=== PATIENT | female | born 1990 | race Caucasian/White ===

== ENCOUNTER 2016-07-20 18:46 | Emergency (ER) | payer OTHER ==
[2016-07-20 18:52] VITALS: BP 132/66; PULSE 100; TEMP 98; BMI 32.1
[2016-07-20 20:10] LABS: URINE APPEARANCE CLEAR; URINE BILIRUBIN NEGATIVE (NEGATIVE); URINE BLOOD NEGATIVE (NEGATIVE); URINE COLOR YELLOW; URINE GLUCOSE (UA) NEGATIVE (NEGATIVE); URINE KETONE NEGATIVE (NEGATIVE); URINE LEUK ESTERASE 2+ (NEGATIVE); URINE NITRITE NEGATIVE (NEGATIVE); URINE PROTEIN NEGATIVE (NEGATIVE); URINE UROBILINOGEN NEGATIVE E.U./dl (0.2-1.0)
[2016-07-20 20:14] LABS: URINE BACTERIA RARE /hpf (NONE SEEN); URINE MUCUS RARE; URINE RBC 6 /hpf (0-3); URINE WBC 9 /hpf (3-5); YEAST RARE
--- NOTE | 2016-07-20 20:18 | PDOC ---
History of Present Illness - General History Source: Patient Exam Limitations: No Limitations - History of Present Illness Initial Comments: CHIEF COMPLAINT: 26 y/o afebrile , approximately 19 week female with LMP 03/08/16 c/o diarrhea x 1 week and lower abd pain. HISTORY OF PRESENT ILLNESS: The patient denies f/c, n/v, CP, SOB, back pain, hematuria, dysuria, vaginal bleeding/discharge. She is taking vitamins. Vital signs on arrival are notable for pulse of 100. REVIEW OF SYSTEMS: GENERAL/CONSTITUTIONAL: No fever/chills. No weakness. No weight change. HEAD, EYES, EARS, NOSE AND THROAT: No change in vision. No ear pain or discharge. No sore throat. CARDIOVASCULAR: No chest pain or shortness of breath. RESPIRATORY: No cough, wheezing, or hemoptysis. GASTROINTESTINAL: +lower abd pain and diarrhea. No nausea, vomiting. No vaginal bleeding. GENITOURINARY: No dysuria, frequency, or change in urination. MUSCULOSKELETAL: No joint or muscle swelling or pain. No neck or back pain. SKIN: No rash or easy bruising. PHYSICAL EXAM: GENERAL: The patient is awake, alert, and fully oriented, in no acute distress. She is well appearing and ambulatory. HEAD: Normal with no signs of trauma. ENT: Pupils equal, round and reactive to light, extraocular movements intact, sclera anicteric, conjunctiva clear. Neck supple. LUNGS: Clear to auscultation bilaterally. Normal excursion. No respiratory distress or use of accessory muscles. CV: RRR, S1/S2, no MRG. Cap refill < 2 sec. ABDOMEN: Soft, non-distended, TTP of suprapubic region, no hepatomegaly or splenomegaly, no masses. EXTREMITIES: Normal range of motion, no edema. NEUROLOGICAL: Normal speech, normal gait. CN II-XII grossly intact. PSYCH: Normal mood, normal affect. SKIN: Warm, dry, normal turgor, no rashes or lesions noted. <Trina Hasa - Last Filed: 07/20/16 22:00> <Marshall Mendiola - Last Filed: 07/21/16 06:52> - General Chief Complaint: Diarrhea Stated Complaint: 19WKS/ABD PAIN Time Seen by Provider: 07/20/16 20:05 Past History - Surgical History Abdominal Surgery: Yes Cholecystectomy: Yes - Reproductive History Is Patient Now?: Yes (19 weeks) (#): 1 Para: 0 Cervical CA: No Dysfunctional Uterine Bleeding: No Ectopic : No Endometrial CA: No Polycystic Ovaries: No Therapeutic (s) & number: No Tubal Ligation: No Spontaneous : 0 - Psycho/Social/Smoking Cessation Hx Anxiety: No Suicidal Ideation: No Smoking Status: Yes Smoking History: Never smoked Have you smoked in the past 12 months: No Number of Cigarettes Smoked Daily: 0 Information on smoking cessation initiated: No Hx Alcohol Use: No Drug/Substance Use Hx: No Substance Use Type: None <Trina Haas - Last Filed: 07/20/16 22:00> <Marshall Mendiola - Last Filed: 07/21/16 06:52> - Past Medical History Allergies/Adverse Reactions: Allergies Allergy/AdvReac Type Severity Reaction Status Date / Time ibuprofen [From Advil] Allergy Mild Swelling Verified 07/20/16 18:50 Home Medications: Ambulatory Orders Cephalexin Monohydrate [Keflex -] 500 mg PO BID #10 capsule 07/20/16 *Physical Exam - Vital Signs Last Vital Signs Temp Pulse Resp BP Pulse Ox 98 F 100 H 18 132/66 99 07/20/16 18:50 07/20/16 18:50 07/20/16 18:50 07/20/16 18:50 07/20/16 18:50 <Trina Haas - Last Filed: 07/20/16 22:00> - Vital Signs Last Vital Signs Temp Pulse Resp BP Pulse Ox 98 F 100 H 18 132/66 99 07/20/16 18:50 07/20/16 18:50 07/20/16 18:50 07/20/16 18:50 07/20/16 18:50 <Marshall Mendiola - Last Filed: 07/21/16 06:52> ED Treatment Course - LABORATORY CBC & Chemistry Diagram: 07/20/16 20:30 07/20/16 20:30 <Trina Haas - Last Filed: 07/20/16 22:00> - LABORATORY CBC & Chemistry Diagram: 07/20/16 20:30 07/20/16 20:30 - ADDITIONAL ORDERS Additional order review: Laboratory Results 07/20/16 07/20/16 07/20/16 20:30 20:30 20:30 Sodium 139 Potassium 4.0 Chloride 104 Carbon Dioxide 23 Anion Gap 12 BUN 10 Creatinine 0.6 Creat Clearance w eGFR > 60 Random Glucose 76 Calcium 8.7 Magnesium 2.0 Total Bilirubin 0.4 AST 14 L D ALT 26 Alkaline Phosphatase 55 Total Protein 6.4 Albumin 3.2 L Urine Color Urine Appearance Urine pH Ur Specific [place] Urine Protein Urine Glucose (UA) Urine Ketones Urine Blood Urine Nitrite Urine Bilirubin Urine Urobilinogen Ur Leukocyte Esterase Urine RBC Urine WBC Ur Epithelial Cells Urine Bacteria Urine Mucus Urine Yeast Urine HCG, Qual Blood Type O POSITIVE Antibody Screen Negative 07/20/16 20:00 Sodium Potassium Chloride Carbon Dioxide Anion Gap BUN Creatinine Creat Clearance w eGFR Random Glucose Calcium Magnesium Total Bilirubin AST ALT Alkaline Phosphatase Total Protein Albumin Urine Color Yellow Urine Appearance Clear Urine pH 5.0 Ur Specific [place] 1.031 Urine Protein Negative Urine Glucose (UA) Negative Urine Ketones Negative Urine Blood Negative Urine Nitrite Negative Urine Bilirubin Negative Urine Urobilinogen Negative Ur Leukocyte Esterase 2+ H Urine RBC 6 Urine WBC 9 Ur Epithelial Cells Moderate Urine Bacteria Rare Urine Mucus Rare Urine Yeast Rare Urine HCG, Qual Positive Blood Type Antibody Screen 07/20/16 20:30 RBC 3.31 L MCV 96.5 H MCHC 34.1 RDW 13.4 MPV 8.7 Neutrophils % 69.6 D Lymphocytes % 22.7 D Monocytes % 6.2 Eosinophils % 1.1 Basophils % 0.4 - Medications Given in the ED: ED Medications Discontinued Medications Generic Name Dose Route Start Last Admin Trade Name Freq PRN Reason Stop Dose Admin Cephalexin HCl 500 mg 07/20/16 22:10 07/20/16 22:21 Keflex - PO 07/20/16 22:11 500 mg ONCE ONE Administration Sodium Chloride 1,000 mls @ 1,000 mls/hr 07/20/16 20:19 07/20/16 20:35 Normal Saline - IV 07/20/16 21:18 1,000 mls/hr ASDIR STA Administration <Marshall Mendiola - Last Filed: 07/21/16 06:52> Medical Decision Making - Medical Decision Making A/P: 26 y/o afebrile female, , approximately 19 weeks c/o lower abd pain and diarrhea x 1 week. Plan is as follows: 1. Labs 2. UA/culture 3. Ultrasound 4. IV fluids Ultrasound IMPRESSION: Single live intrauterine gestation of 19 weeks 2 days. UA shows +UTI. Will treat with Keflex. Gave patient her results. Suggested she eat bananas, plain rice and applesauce for her diarrhea and take entire course of antibiotics. Pt instructed to f/u with her MOBILE SALES TECHNICIAN and return to the ER with any worsening or concerning symptoms. The patient verbalizes understanding of all instructions, has no further questions and is awaiting discharge. <Trina Haas - Last Filed: 07/20/16 22:00> - Medical Decision Making 07/21/16 06:52 ED ATTENDING NOTE: I was available for consultation and review of the case and plan as needed. <Marshall Mendiola - Last Filed: 07/21/16 06:52> *DC/Admit/Observation/Transfer <Trina Haas - Last Filed: 07/20/16 22:00> <Marshall Mendiola - Last Filed: 07/21/16 06:52> Diagnosis at time of Disposition: UTI (urinary tract infection) Qualifiers: Urinary tract infection type: acute cystitis Hematuria presence: without hematuria Qualified Code(s): N30.00 - Acute cystitis without hematuria Diarrhea Qualifiers: Diarrhea type: unspecified type Qualified Code(s): R19.7 - Diarrhea, unspecified - Discharge Dispostion Disposition: HOME Condition at time of disposition: Good - Prescriptions Prescriptions: Cephalexin Monohydrate [Keflex -] 500 mg PO BID #10 capsule - Referrals Referrals: Yadira Nava [Primary Care Provider] - - Patient Instructions Printed Discharge Instructions: DI for Urinary Tract Infection (UTI), DI for Diarrhea and Traveler's Diarrhea -- Adult Additional Instructions: Discharge Instructions: -Take antibiotics as prescribed -Eat bananas, plain rice and applesauce to help with diarrhea -Follow up with your MOBILE SALES TECHNICIAN as soon as possible -Return to the ER with any worsening or concerning symptoms
[2016-07-20] MEDS ORDERED: SODIUM CHLORIDE 1,000 ML IV STA (20:19)
[2016-07-20 20:42] LABS: BASOPHIL 0.4 % (0-2.0); EOSINOPHIL 1.1 % (0-4.5); MCH 32.9 pg (25.7-33.7); MCHC 34.1 g/dl (32.0-36.0); MEAN CELL VOLUME 96.5 fl (80-96); MEAN PLT VOLUME 8.7 fl (7.5-11.1); NEUTROPHILS 69.6 % (42.8-82.8); PLATELET COUNT 249 K/MM3 (134-434); RDW 13.4 % (11.6-15.6); WHITE BLOOD COUNT 12.6 K/mm3 (4.0-10.0)
[2016-07-20 21:19] LABS: ALBUMIN 3.2 g/dl (3.4-5.0); ANION GAP 12 (8-16); BILIRUBIN,TOTAL 0.4 mg/dL (0.2-1.0); CALCIUM 8.7 mg/dL (8.5-10.1); CO2 23 mmol/L (21-32); CREATININE 0.6 mg/dL (0.55-1.02); GLUCOSE,RANDOM 76 mg/dL (74-106); SGOT/AST 14 U/L (15-37); SGPT/ALT 26 U/L (12-78)
[2016-07-20 21:21] LABS: ALK PHOS 55 U/L (45-117); TOT PROT 6.4 g/dl (6.4-8.2)
[2016-07-20] MEDS ORDERED: CEPHALEXIN MONOHYDRATE 500 MG CAPSULE (UD) PO ONE (22:10)
[2016-07-20] MEDS ORDERED: CEPHALEXIN MONOHYDRATE 250 MG CAPSULE (FP) ONE (22:16)
== END 2016-07-20 22:22 | disposition home or self-care (01) ==
LOC: JER 18:46
PROC: 3E0337Z Introduction of Electrolytic and Water Balance Substance into Peripheral Vein, Percutaneous Approach (ICD-10-PCS; principal; 2016-07-20)
DX: O23.42 Unspecified infection of urinary tract in pregnancy, second trimester (principal); Z3A.19 19 weeks gestation of pregnancy
CPT/HCPCS: 36415; 76815-TC; 80053; 81003; 81015; 83735; 84703; 85025; 86850; 86900; 86901; 96360; 99282-25

== ENCOUNTER 2016-09-11 17:33 | Emergency (ER) | payer OTHER ==
[2016-09-11 18:07] VITALS: BMI 40.4
[2016-09-11] MEDS ORDERED: SODIUM CHLORIDE 1,000 ML IV STA (19:45)
[2016-09-11 20:26] LABS: BASOPHIL 0.5 % (0-2.0); MEAN CELL VOLUME 97.1 fl (80-96); MEAN PLT VOLUME 9.1 fl (7.5-11.1); NEUTROPHILS 72.3 % (42.8-82.8); PLATELET COUNT 235 K/MM3 (134-434); WHITE BLOOD COUNT 11.5 K/mm3 (4.0-10.0)
[2016-09-11 20:32] LABS: URINE APPEARANCE CLOUDY; URINE BILIRUBIN NEGATIVE (NEGATIVE); URINE BLOOD NEGATIVE (NEGATIVE); URINE COLOR YELLOW; URINE GLUCOSE (UA) NEGATIVE (NEGATIVE); URINE KETONE NEGATIVE (NEGATIVE); URINE NITRITE NEGATIVE (NEGATIVE); URINE PROTEIN NEGATIVE (NEGATIVE); URINE UROBILINOGEN NEGATIVE E.U./dl (0.2-1.0)
[2016-09-11 20:42] LABS: ALBUMIN 3.1 g/dl (3.4-5.0); ANION GAP 12 (8-16); BILIRUBIN,TOTAL 0.4 mg/dL (0.2-1.0); CALCIUM 8.4 mg/dL (8.5-10.1); CO2 21 mmol/L (21-32); COCKROFT - GAULT 446.4625; CREATININE 0.4 mg/dL (0.55-1.02); GLUCOSE,RANDOM 76 mg/dL (74-106); MAGNESIUM 1.9 mg/dL (1.8-2.4); SGOT/AST 19 U/L (15-37); SGPT/ALT 25 U/L (12-78); TOT PROT 6.5 g/dl (6.4-8.2)
[2016-09-11 20:43] LABS: URINE LEUK ESTERASE 2+ (NEGATIVE)
[2016-09-11 20:58] LABS: ALK PHOS 91 U/L (45-117)
[2016-09-11 21:00] LABS: URINE BACTERIA RARE /hpf (NONE SEEN); URINE MUCUS FEW; URINE RBC 8 /hpf (0-3); URINE WBC 14 /hpf (3-5)
[2016-09-11] MEDS ORDERED: NITROFURANTOIN MACROCRYSTAL 50 MG CAPSULE (FP) ONE (22:23)
--- NOTE | 2016-09-11 22:29 | PDOC ---
History of Present Illness - General Chief Complaint: Pain, Acute Stated Complaint: UPPER ABDOMINAL PAIN/26 WKS Time Seen by Provider: 09/11/16 19:06 History Source: Patient Exam Limitations: No Limitations - History of Present Illness Travel History: No Initial Comments: 09/11/16 22:24 26yo Female patient w/ PmHx: Cholecystectomy "years ago" 26 weeks presents to ED for upper abd pain. Patient state symptoms began 2 hours after eating last night and worsened around 4 am this morning. Patient states symptoms woke her up out of her sleep. She reports she has been unable to tolerate fluids or food. She denies CP, back pain, vomiting or diarrhea, fever, diff breathing, or any other complaints at this time. NETWORK SECURITY ENGINEER: Dr. Nolan PCP: Andres Nava. Timing/Duration: reports: constant Quality: reports: moderate Abdominal Pain Onset Location: reports: epigastric Activities at Onset: reports: no specific activity Treatment Prior to Arrive: worse with: analgesics, antacids, cold pack, heat, laxative, enema, other Aggravating Factors: worse with: None, Defecation, Eating, Emotional upset, Exertion, [place], Movement, Voiding, Change in position Alleviating Factors: worse with: None, Belching, Shallow Breathing, Defecation, Eating, Holding Breath, Passing Gas, Change in Position, Rest, Voiding, Vomiting Past History - Travel Traveled outside of the country in the last 30 days: No Close contact w/someone who was outside of country & ill: No - Past Medical History Allergies/Adverse Reactions: Allergies Allergy/AdvReac Type Severity Reaction Status Date / Time ibuprofen [From Advil] Allergy Mild Swelling Verified 09/11/16 18:06 Home Medications: Ambulatory Orders Ferrous Sulfate [Feosol] 325 mg PO DAILY 09/12/16 Nitrofurantoin Monohyd/M-Cryst [Macrobid -] 100 mg PO BID #14 capsule 09/12/16 Vitamins (Sjr) - 1 tab PO DAILY 09/12/16 - Surgical History Abdominal Surgery: Yes Cholecystectomy: Yes - Reproductive History (#): 1 Para: 0 Cervical CA: No Dysfunctional Uterine Bleeding: No Ectopic : No Endometrial CA: No Polycystic Ovaries: No Therapeutic (s) & number: No Tubal Ligation: No Spontaneous : 0 - Psycho/Social/Smoking Cessation Hx Anxiety: No Suicidal Ideation: No Smoking Status: Yes Smoking History: Never smoked Have you smoked in the past 12 months: No Number of Cigarettes Smoked Daily: 0 Information on smoking cessation initiated: No Hx Alcohol Use: No Drug/Substance Use Hx: No Substance Use Type: None Review of Systems - Review of Systems Able to Perform ROS?: Yes Is the patient limited [place] proficient: No Constitutional: No: Chills, Fever Respiratory: No: Cough, Shortness of Breath, Stridor, Wheezing Cardiac (ROS): No: Chest Pain, Palpitations, Syncope, Chest Tightness ABD/GI: Yes: Nausea, Poor Appetite, Poor Fluid Intake, Other (Upper abdominal Pain-- 26 weeks preg.). No: Constipated, Diarrhea, Vomiting, Abdominal cramping : No: Burning, Dysuria, Hematuria Musculoskeletal: No: Back Pain Integumentary: No: Bruising, Erythema Neurological: No: Headache All Other Systems: Reviewed and Negative *Physical Exam - Vital Signs Last Vital Signs Temp Pulse Resp BP Pulse Ox 97.3 F L 99 H 20 131/74 100 09/11/16 18:02 09/11/16 18:02 09/11/16 18:02 09/11/16 18:02 09/11/16 18:02 - Physical Exam General Appearance: Yes: Nourished, Appropriately Dressed. No: Apparent Distress, Mild Distress, Moderate Distress, Severe Distress Neck: positive: Trachea midline, Supple. negative: Decreased range of motion, Stridor, Lymphadenopathy (R), Lymphadenopathy (L) Respiratory/Chest: positive: Lungs Clear, Normal Breath Sounds. negative: Chest Tender, Respiratory Distress, Accessory Muscle Use, Labored Respiration, Rapid RR, Wheezing Cardiovascular: positive: Regular Rhythm, Regular Rate Gastrointestinal/Abdominal: positive: Normal Bowel Sounds, Tender, Soft, Distended (26 weeks ), Tenderness (Epigastric on deep palpation.). negative: Guarding, Rebound Musculoskeletal: positive: Normal Inspection. negative: CVA Tenderness Extremity: positive: Normal Capillary Refill, Normal Inspection, Normal Range of Motion Integumentary: positive: Normal Color, Dry, Warm Neurologic: positive: manipulative therapy specialist II-XII NML intact, Fully Oriented, Alert, Normal Mood/ Affect, Normal Response, Motor Strength 5/5 ED Treatment Course - LABORATORY CBC & Chemistry Diagram: 09/11/16 19:50 09/11/16 19:50 - ADDITIONAL ORDERS Additional order review: Laboratory Results 09/11/16 09/11/16 19:50 19:50 Sodium 139 Potassium 4.0 Chloride 106 Carbon Dioxide 21 Anion Gap 12 BUN 8 Creatinine 0.4 L D Creat Clearance w eGFR > 60 Random Glucose 76 Calcium 8.4 L Magnesium 1.9 Total Bilirubin 0.4 AST 19 D ALT 25 Alkaline Phosphatase 91 D Total Protein 6.5 Albumin 3.1 L Beta HCG, Quant 1188.3 Urine Color Yellow Urine Appearance Cloudy Urine pH 5.0 Ur Specific [place] 1.025 Urine Protein Negative Urine Glucose (UA) Negative Urine Ketones Negative Urine Blood Negative Urine Nitrite Negative Urine Bilirubin Negative Urine Urobilinogen Negative Ur Leukocyte Esterase 2+ H Urine RBC 8 Urine WBC 14 Ur Epithelial Cells Many Urine Bacteria Rare Urine Mucus Few 09/11/16 19:50 RBC 3.38 L MCV 97.1 H MCHC 33.0 RDW 13.0 MPV 9.1 Neutrophils % 72.3 Lymphocytes % 20.9 Monocytes % 5.3 Eosinophils % 1.0 Basophils % 0.5 - RADIOLOGY Radiology Studies Ordered: Category Date Time Status LIMITED US [US] Stat Ultrasound 09/11/16 19:47 Completed TRANSVAGINAL US PREG [US] Stat Ultrasound 09/11/16 19:45 Completed - Medications Given in the ED: ED Medications Discontinued Medications Generic Name Dose Route Start Last Admin Trade Name Celestineq PRN Reason Stop Dose Admin Sodium Chloride 1,000 mls @ 1,000 mls/hr 09/11/16 19:45 09/11/16 21:06 Normal Saline - IV 09/11/16 20:44 1,000 mls/hr ASDIR STA Administration Progress Note - Progress Note Progress Note: 2230: Patient sitting on stretcher eating pizza with significant other. Denies Abd pain, CP, Back pain, and no acute distress noted. *DC/Admit/Observation/Transfer Diagnosis at time of Disposition: Abdominal pain in - Discharge Dispostion Disposition: HOME Condition at time of disposition: Stable Admit: No - Prescriptions Prescriptions: Nitrofurantoin Monohyd/M-Cryst [Macrobid -] 100 mg PO BID #14 capsule - Referrals Referrals: Ayden Estrada MD [Staff Physician] - (patient will moss picker prescription to treat UTI patient will increase amount of water she drinks to 10-12 8oz glasses of water daily patient will return to labor & delivery if water breaks, vaginal bleeding, regular painful contractions or decreased movement patient will maintain appt as scheduled in 2wks patient verbalizes clear understanding of all discharge instructions patient discharged to home stable intact & undelivered) Andres Nava MD [Primary Care Provider] - - Patient Instructions Printed Discharge Instructions: DI for Abdominal Pain -- Early Additional Instructions: FOLLOW UP WITH YOUR NETWORK SECURITY ENGINEER FOR FURTHER EVALUATION. TAKE MEDICATIONS PRESCRIBED. RETURN IF ANY CONCERNS FOR FURTHER EVALUATION. Print Language: BELGIAN
[2016-09-11] MEDS ORDERED: NITROFURANTOIN MACROCRYSTAL 50 MG CAPSULE (FP) PO SCH (22:30)
[2016-09-11 23:48] VITALS: BP 114/56; PULSE 109; TEMP 98.1
== END 2016-09-12 | disposition home or self-care (01) ==
LOC: JERFT 17:33 → JER 17:33
PROC: 3E0337Z Introduction of Electrolytic and Water Balance Substance into Peripheral Vein, Percutaneous Approach (ICD-10-PCS; principal; 2016-09-11)
DX: R10.30 Lower abdominal pain, unspecified (principal); O23.32 Infections of other parts of urinary tract in pregnancy, second trimester; Z3A.26 26 weeks gestation of pregnancy
CPT/HCPCS: 36415; 76815-TC; 76817-TC; 80053; 81003; 81015; 83735; 84702; 85025; 87086; 96360; 99283-25

== ENCOUNTER 2016-09-17 20:25 | Emergency (ER) | payer OTHER ==
[2016-09-17 20:44] VITALS: TEMP 98.3; BMI 40.4
--- NOTE | 2016-09-17 20:55 | PDOC ---
History of Present Illness - History of Present Illness Initial Comments: 09/17/16 21:08 Patient is a 26 year old female (24 weeks) with no significant medical hx who is presenting to the ED with several days of sore throat, dry cough, pleuritic chest pain, and rhinorrhea. She states that her chest pain is non- radiating, localized to the center of her chest, and only present when she coughs. Her cough is dry and non-productive. The patient also endorses constant nausea and one episode of vomiting. Patient denies any fevers, chills, or diarrhea. Patient is on her third day of a weeks course of macrobid for UTI. Her last care appointment was one week ago and reported normal. OB: Apolonia Nolan CNM <Marianne Land - Last Filed: 09/17/16 21:08> <Rudy Mccarthy - Last Filed: 09/17/16 22:47> - General Chief Complaint: Cold Symptoms Stated Complaint: CHEST PAIN , COUGH (6 MONTHS PREG) Time Seen by Provider: 09/17/16 20:54 Past History <Marianne Land - Last Filed: 09/17/16 21:08> - Surgical History Abdominal Surgery: Yes Cholecystectomy: Yes - Reproductive History (#): 1 Para: 0 Cervical CA: No Dysfunctional Uterine Bleeding: No Ectopic : No Endometrial CA: No Polycystic Ovaries: No Therapeutic (s) & number: No Tubal Ligation: No Spontaneous : 0 - Psycho/Social/Smoking Cessation Hx Anxiety: No Suicidal Ideation: No Smoking Status: Yes Smoking History: Never smoked Have you smoked in the past 12 months: No Number of Cigarettes Smoked Daily: 0 Information on smoking cessation initiated: No Hx Alcohol Use: No Drug/Substance Use Hx: No Substance Use Type: None <Rudy Mccarthy - Last Filed: 09/17/16 22:47> - Past Medical History Allergies/Adverse Reactions: Allergies Allergy/AdvReac Type Severity Reaction Status Date / Time ibuprofen [From Advil] Allergy Severe Swelling Verified 09/17/16 20:44 Home Medications: Ambulatory Orders Ferrous Sulfate [Feosol] 325 mg PO DAILY 09/12/16 Nitrofurantoin Monohyd/M-Cryst [Macrobid -] 100 mg PO BID #14 capsule 09/12/16 Vitamins (Sjr) - 1 tab PO DAILY 05/20/17 Cephalexin Monohydrate [Keflex -] 500 mg PO BID #14 capsule 09/17/16 Review of Systems - Review of Systems Comments:: 09/17/16 21:15 CONSTITUTIONAL: No fever, no chills, no fatigue EYES: No visual changes ENT: Sore throat, rhinorrhea. No ear pain CARDIOVASCULAR: Chest pain. No palpitations RESPIRATORY: Dry cough. No SOB GI: Nausea, vomiting. No abdominal pain, no constipation, no diarrhea GENITOURINARY: No dysuria, no frequency, no hematuria MUSKULOSKELETAL: No backpain, no joint pain, no myalgias SKIN: No rash NEURO: No headache <Marianne Land - Last Filed: 09/17/16 21:08> *Physical Exam - Vital Signs Last Vital Signs Temp Pulse Resp BP Pulse Ox 98.3 F 122 H 21 125/83 97 09/17/16 20:41 09/17/16 20:41 09/17/16 20:41 09/17/16 20:41 09/17/16 20:41 - Physical Exam Comments: 09/17/16 21:17 CONSTITUTIONAL: Well-appearing; well-nourished; in no apparent distress HEAD: Normocephalic; atraumatic EYES: PERRL; EOM intact ENMT: External appears normal; normal oropharynx. Nasal mucosa is edematous. NECK: Supple; non-tender; no cervical lymphadenopathy CARD: Normal S1, S2; no murmurs, rubs, or gallops RESP: Normal chest excursion with respiration; breath sounds clear and equal bilaterally; no wheezes, rhonchi, or rales ABD: Gravid uterus 4-5cm above the umbilicus. Soft, non-distended; non-tender; no palpable organomegaly, no palpable hernias EXT: Normal ROM in all four extremities; non-tender to palpation; distal pulses intact SKIN: Warm, dry, no rash NEURO: No focal neurological deficiencies. <Marianne Land - Last Filed: 09/17/16 21:08> - Vital Signs Last Vital Signs Temp Pulse Resp BP Pulse Ox 98.3 F 122 H 21 125/83 97 09/17/16 20:41 09/17/16 20:41 09/17/16 20:41 09/17/16 20:41 09/17/16 20:41 <Rudy Mccarthy - Last Filed: 09/17/16 22:47> Medical Decision Making - Medical Decision Making 09/17/16 21:29 Patient is well-appearing 26-year-old female, 1 para 0, at 24 weeks gestation who presents with uri-type symptoms for the past several days associated with a single episode of nonbloody, nonbilious vomiting. In the ER, patient is awake and alert, afebrile, mildly tachycardic, normotensive with oxygen saturation of 99% on room air. Physical exam reveals edematous nasal mucosa, no evidence of respiratory distress, clear lungs, soft nontender abdomen with a gravid uterus palpable above the umbilicus, and no evidence of lower extremity edema or asymmetry. I do not suspect a PE. EKG shows sinus tachycardia without evidence of right sided heart strain. Will administer set amount of Phenergan and Benadryl. Will obtain UA and urine culture to evaluate for proper response to Macrobid. Likely discharge. 09/17/16 22:42 Patient is resting comfortably. Heart rate is noted to decrease to 102. Patient is resting comfortably. Urinalysis reveals persistent leuk esterase positive and 6 WBCs per high-powered field. I will switch the patient's Macrobid to Keflex-500 mg by mouth twice a day with RNFA follow-up as needed. <Rudy Mccarthy - Last Filed: 09/17/16 22:47> *DC/Admit/Observation/Transfer - Attestations Scribe Attestion: 09/17/16 21:18 Documentation prepared by Marianne Land, acting as certified ophthalmic medical technician for Rudy Mccarthy MD. <Marianne Land - Last Filed: 09/17/16 21:08> - Attestations Physician Attestion: 09/17/16 21:29 The documentation was prepared by the scribe under my direct supervision. I have reviewed the documentation which correctly represents the findings, medical decision-making and critical action taken by me. <Rudy Mccarthy - Last Filed: 09/17/16 22:47> Diagnosis at time of Disposition: Upper respiratory tract infection Qualifiers: URI type: unspecified viral URI Qualified Code(s): J06.9 - Acute upper respiratory infection, unspecified; B97.89 - Other viral agents as the cause of diseases classified elsewhere UTI (urinary tract infection) Qualifiers: Urinary tract infection type: site unspecified Hematuria presence: without hematuria Qualified Code(s): N39.0 - Urinary tract infection, site not specified - Discharge Dispostion Disposition: HOME Condition at time of disposition: Stable - Referrals Referrals: Andres Nava MD [Primary Care Provider] - - Patient Instructions Printed Discharge Instructions: DI for Viral Upper Respiratory Infection -- Adult, DI for Urinary Tract Infection (UTI)
[2016-09-17] MEDS ORDERED: ACETAMINOPHEN 325 MG TABLET (FP) PO ONE (21:04)
[2016-09-17] MEDS ORDERED: ACETAMINOPHEN 325 MG TABLET (FP) ONE (21:06)
[2016-09-17 22:33] LABS: URINE APPEARANCE CLEAR; URINE BILIRUBIN NEGATIVE (NEGATIVE); URINE BLOOD NEGATIVE (NEGATIVE); URINE COLOR YELLOW; URINE GLUCOSE (UA) NEGATIVE (NEGATIVE); URINE KETONE TRACE (NEGATIVE); URINE NITRITE NEGATIVE (NEGATIVE); URINE PROTEIN NEGATIVE (NEGATIVE); URINE UROBILINOGEN NEGATIVE E.U./dl (0.2-1.0)
[2016-09-17 22:34] LABS: URINE LEUK ESTERASE 1+ (NEGATIVE)
[2016-09-17 22:35] LABS: URINE MUCUS RARE; URINE RBC 3 /hpf (0-3); URINE WBC 6 /hpf (3-5)
[2016-09-17 22:54] VITALS: BP 134/81; PULSE 105
--- NOTE | 2016-09-26 19:22 | EKG ---
Test Reason : Blood Pressure : / mmHG Vent. Rate : 119 BPM Atrial Rate : 119 BPM P-R Int : 126 ms QRS Dur : 074 ms QT Int : 344 ms P-R-T Axes : 031 065 039 degrees QTc Int : 483 ms SINUS TACHYCARDIA OTHERWISE NORMAL ECG WHEN COMPARED WITH ECG OF 20-APR-2016 19:39, VENT. RATE HAS INCREASED BY 40 BPM T WAVE AMPLITUDE HAS DECREASED IN LATERAL LEADS Confirmed by SURAJ BANEGAS, TELLY ([id number]) on 09/26/2016 7:22:13 PM Referred By: Confirmed By:TELLY RUELAS MD
== END 2016-09-17 22:57 | disposition home or self-care (01) ==
LOC: JER 20:25
DX: J06.9 Acute upper respiratory infection, unspecified (principal); B97.89 Other viral agents as the cause of diseases classified elsewhere; O23.32 Infections of other parts of urinary tract in pregnancy, second trimester; Z3A.24 24 weeks gestation of pregnancy
CPT/HCPCS: 81003; 81015; 87086; 93005; 93010; 99282-25

== ENCOUNTER 2016-12-10 09:05 | Inpatient (IN) | payer OTHER ==
[2016-12-10] MEDS ORDERED: AMPICILLIN - 2 GM in SODIUM CHLORIDE 100 ML IVPB ONE (09:30)
[2016-12-10] MEDS ORDERED: AMPICILLIN - 100 ML IVPB ONE (09:30)
[2016-12-10] MEDS: DEXTROSE 5%-LACTATED RINGERS 1,000 ML IV SCH (09:30)
[2016-12-10 10:10] LABS: BASOPHIL 0.4 % (0-2.0); EOSINOPHIL 0.8 % (0-4.5); MCH 33.1 pg (25.7-33.7); MCHC 34.5 g/dl (32.0-36.0); MEAN PLT VOLUME 9.6 fl (7.5-11.1); NEUTROPHILS 73.5 % (42.8-82.8); PLATELET COUNT 210 K/MM3 (134-434); RDW 14.3 % (11.6-15.6); WHITE BLOOD COUNT 10.9 K/mm3 (4.0-10.0)
[2016-12-10 10:36] LABS: ANION GAP 8 (8-16); CALCIUM 8.9 mg/dL (8.5-10.1); CO2 22 mmol/L (21-32); CREATININE 0.6 mg/dL (0.55-1.02); GLUCOSE,RANDOM 91 mg/dL (74-106)
[2016-12-10 10:38] LABS: INR 1.04 (0.82-1.09); PROTHROMBIN TIME (PATIENT) 11.4 SEC (9.98-11.88)
[2016-12-10 10:41] LABS: ACTIVATED PTT 29.5 SECONDS (26.9-34.4)
[2016-12-10] MEDS ORDERED: PROMETHAZINE HCL 25 MG/1 ML VIAL IVPUSH ONE (10:50)
[2016-12-10] MEDS ORDERED: BUTORPHANOL TARTRATE 1 MG/ML VIAL IVPB ONE (10:50)
[2016-12-10 10:56] VITALS: BMI 44.3
[2016-12-10] MEDS ORDERED: DEXTROSE 5%-LACTATED RINGERS 1,000 ML IV SCH (11:00)
[2016-12-10] MEDS ORDERED: ELECTROLYTE-148 SOLN 500 ML IV ONE (11:08)
[2016-12-10] MEDS ORDERED: CITRIC ACID/SODIUM CITRATE 30 ML UNIT-DOSE CUP PO ONE (11:08)
[2016-12-10] MEDS ORDERED: ELECTROLYTE-148 SOLN 1,000 ML IV SCH (11:15)
--- NOTE | 2016-12-10 11:25 | HP ---
Past Medical History - Primary Care Physician PCP:: Kaia Laird - Admission Chief Complaint: 26 yrs h/f sp SROM( green color fluid ) since 8.20 AM , onset LP since 7.00AM . meconium stained liquour. h/o Herpes Break out on Lt side of labium on 4 days ago started po valtrex after that 500 mg daily, currently symptoms free History of Present Illness: pnc at , [facility] . wt gain 58 Lbs h/o Herpes genitalis for 3 years . . h/o breakout during pregn in [place], approx 4 months ago & again now 4 days ago. she was not taking any prophylactic antiviral agents during pregn, except 4 days ago work Up: O Pos, Rpr nr, , Hbsag neg, Rubella pos, Quantiferon neg, GBS pos , Hiv neg, Gc/Ct neg, Sickle neg 1 hr Gtt 166, 3 Hr Gtt wnl ( 85, 163, 122, 85 ) . 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 Weeks Gestation by Dates: 39.4 ...EDC by Dates: 12/13/16 ...EDC by Sono: 12/13/16 Heme/Onc: Yes: Anemia (rx po iron & pnv) Infectious Disease: Yes: STD's (herpes Genitalis). No: HIV, Tuberculosis Psych: No: Addictions, Anxiety, Bipolar, Depression - Past Surgical History Past Surgical History: Yes: None Hx Myomectomy: No Hx Transabdominal Cerclage: No - Smoking History Smoking history: Never smoked Have you smoked in the past 12 months: No Aproximately how many cigarettes per day: 0 - Alcohol/Substance Use Hx Alcohol Use: No History of Substance Use: reports: None Home Medications - Allergies Allergies/Adverse Reactions: Allergies Allergy/AdvReac Type Severity Reaction Status Date / Time ibuprofen [From Advil] Allergy Severe Swelling Verified 09/17/16 20:44 - Home Medications Home Medications: Ambulatory Orders Ferrous Sulfate [Feosol] 325 mg PO DAILY 09/12/16 Nitrofurantoin Monohyd/M-Cryst [Macrobid -] 100 mg PO BID #14 capsule 09/12/16 Vitamins (Sjr) - 1 tab PO DAILY 09/12/16 Cephalexin Monohydrate [Keflex -] 500 mg PO BID #14 capsule 09/17/16 Physical Exam - Maternity Vital Signs: Vital Signs Temperature 98.7 F 12/10/16 10:46 Pulse Rate 90 12/10/16 10:46 Respiratory Rate 20 12/10/16 10:46 Blood Pressure 143/95 12/10/16 10:46 O2 Sat by Pulse Oximetry (%) Selected Entries 12/10/16 10:46 Weight 318 lb Constitutional: Yes: Well Nourished, Mild Distress, Obese Eyes: Yes: WNL HENT: Yes: WNL, Normocephalic Neck: Yes: WNL Cardiovascular: Yes: WNL, Regular Rate and Rhythm Lungs: Clear to auscultation Breast(s): Yes: WNL - Abdominal Exam/OB Fundal Height: 40 Number of Fetuses: Single Presentation: Vertex Contractions: Yes Regularity: Irregular (4-5 min) Intensity: Mild Monitor Mode: External Heart Rate (range): 150 Heart Rate Location: [facility] Category: I Accelerations: Uniform Decelerations: None - Vaginal Exam/OB Vaginal Bleediing: No Speculum Exam: Yes Dilatation (cm): 1 Effacement (%): 60 Amniotic Membrane Status: Ruptured Nitrazine Test: Positive Amniotic Fluid: Yes: Meconium Stained Meconium: Moderate Presentation: Vertex/Position Station: -3 - Physical Exam Musculoskeletal: Yes: WNL Extremities: Yes: WNL. No: Calf Tenderness Edema: Yes Edema: LLE: 2+, RLE: 2+ Integumentary: Yes: Tattoos Deep Tendon Reflex Grade: Normal +2 ...Motor Strength: WNL Psychiatric: Yes: WNL, Alert, Oriented - Labs Lab Results: CBC, BMP 12/10/16 09:50 08/17/17 09:50 Laboratory Tests 12/10/16 12/10/16 12/10/16 09:50 09:50 09:50 INR 1.04 PTT (Actin FS) 29.5 Uric Acid 4.1 GGT 20 AST 25 D ALT 26 Urine Protein RPR Titer Nonreactive Blood Type Antibody Screen 12/10/16 12/10/16 09:50 10:00 INR PTT (Actin FS) Uric Acid GGT AST ALT Urine Protein 1+ H RPR Titer Blood Type O POSITIVE Antibody Screen Negative Hemorrhage Risk Assessment - Risk Factors Medium Risk Factors: Yes: Obesity (BMI >40) Risk Score: 1 Risk Level: Medium Risk Problem List - Problems (1) with 39 completed weeks gestation Code(s): Z3A.39 - 39 WEEKS GESTATION OF (2) Meconium in amniotic fluid affecting management of mother Code(s): O36.8990 - MATERNAL CARE FOR OTH PROBLEMS, UNSP TRIMESTER, UNSP Qualifiers: Trimester: third trimester (3) Herpes genitalis in women Code(s): A60.09 - HERPESVIRAL INFECTION OF OTHER UROGENITAL TRACT (4) SROM (spontaneous rupture of membranes) Code(s): NWJ3987 - (5) Morbid obesity with BMI of 40.0-44.9, adult Code(s): E66.01 - MORBID (SEVERE) OBESITY DUE TO EXCESS CALORIES Z68.41 - BODY MASS INDEX (BMI) 40.0-44.9, ADULT Assessment/Plan 26 yrs , 39.4 weeks , SROM, meconium stained medium thick, ear;y labor , h/ o herpres genitalis recent breakout , morbid obesity Plan delivery by primary c/section
[2016-12-10 11:50] LABS: URINE APPEARANCE CLOUDY; URINE BILIRUBIN NEGATIVE (NEGATIVE); URINE BLOOD 2+ (NEGATIVE); URINE COLOR YELLOW; URINE GLUCOSE (UA) NEGATIVE (NEGATIVE); URINE KETONE NEGATIVE (NEGATIVE); URINE LEUK ESTERASE NEGATIVE (NEGATIVE); URINE NITRITE NEGATIVE (NEGATIVE); URINE UROBILINOGEN NEGATIVE mg/dL (0.2-1.0)
[2016-12-10] MEDS ORDERED: ONDANSETRON 4 MG/2 ML VIAL IVPB PRN (11:58)
[2016-12-10 12:17] LABS: URINE PROTEIN 1+ (NEGATIVE)
[2016-12-10 12:35] LABS: SGOT/AST 25 U/L (15-37); SGPT/ALT 26 U/L (12-78); URIC ACID 4.1 mg/dL (2.6-7.2)
[2016-12-10 12:49] LABS: URINE BACTERIA RARE /hpf (NONE SEEN); URINE MUCUS RARE; URINE RBC 11 /hpf (0-3); URINE WBC 4 /hpf (3-5)
[2016-12-10] MEDS ORDERED: AMPICILLIN - 100 ML IVPB SCH (13:30)
[2016-12-10 13:39] LABS: ARTERIAL BLD GAS O2 SATURATION 65.5 % (90-98.9); ARTERIAL BLOOD GAS BASE EXCESS -0.9 meq/l (-2-2); ARTERIAL BLOOD GAS HCO3 24.3 meq/L (22-26); ARTERIAL BLOOD GAS PO2 29.7 mmHg (80-100); ARTERIAL BLOOD GAS pH 7.35 (7.35-7.45)
[2016-12-10] MEDS ORDERED: METHYLERGONOVINE MALEATE 0.2 MG/1 ML AMP IM PRN (14:04)
[2016-12-10] MEDS ORDERED: ACETAMINOPHEN 1000 MG/100 ML VIAL (NON FORMULARY) IVPB PRN (14:12)
--- NOTE | 2016-12-10 14:22 | OP ---
Operative Note - Note: Operative Date: 12/10/16 Pre-Operative Diagnosis: 39.4 weeks, fetus at risk, meconium fluid,hsv genitalis , morbid obesity Operation: Primary LFTC/Section Findings: 1 14 pm , Baby Boy, Vx , Lot, 8/9 , Wt 9'15" , cord around neckx1 . Amniotic Fluid medium meconoium thick Both tubes & ovaries normal . Dr Disla Stock Crane Operator present in the room Surgeon: Kaia Laird Practice Representative: Tom Welch Anesthesiologist/WIRED SWEATBAND CUTTER: Johnnie Martinez Anesthesia: Spinal Specimens Removed: cord segment for cord blood gas. cord blood. placenta Estimated Blood Loss (mls): 1,000 Drains, Volume Out (mls): 100 (acevedo , niesha color ) Fluid Volume Replaced (mls): 1,000 (IV Ancef 2 gm ivpb prior to incision ) Operative Report Dictated: Yes
--- NOTE | 2016-12-10 14:31 | PN ---
Delivery - Delivery Section: Primary, Low Flap Transverse (Indication : 39.4 weeks, Fetus at Risk, Meconium Fluid, HSVgenitalis ,Morbid Obesity) EBL (cc): 1,000 (acevedo output 100 ml.niesha color ) Delivery, Single - Stages of Labor Date 1st Stage Initiatied: 12/10/16 Time 1st Stage Initiated: 07:00 Date of Delivery: 12/10/16 Time of Delivery: 13:14 Date Placenta Delivered: 12/10/16 Time Placenta Delivered: 13:16 Placenta: Yes: Manual Removal, Uterine Exploration - Condition of Infant Head Setter/Laboratory Asst Present: Yes Name: Zhou Disla Infant Gender: Male Position: Left, OT (cord around neckx1) Total Hours ROM (Hrs/Mins): 4 hrs 56 min - Feeding Plan Initial Plan: Exclusive throughout hospitalization - Additional Information: medium thick meconium Remarks - Remarks Remarks: 26 yrs 39 .4 weeks in labor, srom, medium thick meconium , h/o hepes genitalis breakout x 4 days ago, rx with valtrex for 4 days gbs pos, rx Iv Ampicillin 2 gm ivpb given . pnc at , [facility] Intraop course uneventful
[2016-12-10] MEDS: D5W-LR W/ 20 UNITS OXYTOCIN 1,000 ML IV SCH ×2 (14:49→23:18)
[2016-12-10] MEDS ORDERED: AMPICILLIN - 1 GM in SODIUM CHLORIDE 100 ML IVPB SCH (14:54)
--- NOTE | 2016-12-10 15:40 | OP ---
DATE OF OPERATION: 12/10/2016 PREOPERATIVE DIAGNOSIS: A 39.4-week fetus at risk, meconium fluid, herpes genitalis and morbid obesity. PROCEDURE PERFORMED: Primary duo-[id number] section. SURGEON: Kaia Laird MD CUPOLA LINER: KENY Solo ANESTHESIOLOGIST: Johnnie Martinez DO ANESTHESIA: Spinal. INDICATIONS: This is a 26-year-old 1, para 0, at 39.4 weeks, with rupture of membranes since 8:20 a.m. today and moderate meconium noted. The patient is in early labor, 1-cm dilated and irregular contractions. But she has history of a herpes breakout 4 days ago, and she started Valtrex only 4 days ago, 500 mg daily Hence, the patient was taken for due to the fetus at risk. DESCRIPTION OF PROCEDURE: The patient's abdomen was shaved and prepped, and she was taken to the operating room table. Spinal anesthesia was given. A Francis catheter was inserted. The abdomen was painted and draped in the usual manner. A Pfannenstiel incision was made through the skin and subcutaneous tissue. The anterior rectus sheath was incised transversely. Bleeding points were clamped and cauterized. The rectus muscle was from the rectus sheath. The parietal peritoneum was opened vertically. The lower flap by the peritoneum was incised transversely. Then the lower uterine segment was incised transversely. Amniotic fluid was medium-thick with meconium. The baby was delivered from the LOT position at 1:14 p.m. Immediate oral and nasal suction was done. It was baby boy. The cord was clamped and the cord was cut. A cord segment was also cut for cord blood gases and cord blood was collected. Then the placenta was removed completely with the membranes. The uterine cavity was cleaned. The uterine incision was closed in 2 layers. The 1st layer was a continuous locking with Biosyn 0 suture. The 2nd layer was continuous intermittent locking with Biosyn 0 suture. Hemostasis was verified. Then the bladder peritoneum was closed with also Biosyn 0 suture. Hemostasis was verified. Both tubes and ovaries were normal. Irrigation was done. Blood clots were removed from the peritoneal cavity. Then closure of the abdomen was done. Sponge, instrument and needle count was correct. The parietal peritoneum was closed with Biosyn 0 suture. The muscles were approximated together with Biosyn 0 sutures. Underneath the rectus sheath, hemostasis was verified. The anterior rectus sheath was closed with Vicryl 0 suture; continuous sutures were taken. Subcutaneous tissue hemostasis was verified, and the subcutaneous tissue was approximated with Biosyn 0 suture. Interrupted sutures were taken. Then the skin was approximated with clara. A pressure dressing was given. Blood clots were removed from the vagina. Estimated blood loss was 1000 mL. Intraoperative urine output was 100 mL. She received 1000 mL of IV crystalloid solution intraoperatively, and she was given 2 g of IV Ancef prior to the incision. She has history of GBS positive. She has received 2 g of IV ampicillin also at 9:30 a.m. The patient tolerated the procedure well and she was transferred to the recovery room in stable condition. Twin [id number] MTDD
[2016-12-10] MEDS: SENNOSIDES/DOCUSATE COMBO (SENNA PLUS) TABLET (UD) PO PRN (15:44)
[2016-12-10] MEDS ORDERED: DIPHTH,PERTUSS(ACELL),TET 0.5 ML DISP.SYRIN IM ONE (16:41)
[2016-12-10] MEDS: CEFAZOLIN (PRE-DOCKED) 50 ML IVPB SCH (17:29)
[2016-12-10] MEDS ORDERED: HYDROmorphone HCL CARPU-JECT 1 MG/1 ML DISP.SYRIN IVPB ONE (20:03)
[2016-12-11] MEDS: CEFAZOLIN (PRE-DOCKED) 50 ML IVPB SCH ×2 (01:47→09:21)
[2016-12-11] MEDS: DEXTROSE 5%-LACTATED RINGERS 1,000 ML IV SCH (06:12)
[2016-12-11] MEDS ORDERED: oxyCODONE HCL 5 MG TABLET PO PRN (08:00)
--- NOTE | 2016-12-11 08:03 | PN ---
Progress Note (short form) - Note Progress Note: pod 1 doing well, no c/o CBC, BMP 12/10/16 09:50 Last Vital Signs Temp Pulse Resp BP Pulse Ox 98.3 F 82 18 122/76 12/11/16 05:56 12/11/16 05:56 12/11/16 05:56 12/11/16 05:56 abdomen soft, no distension, no cva incision dry, clean no calf tenderness no excess vaginal bleeding plan ambulate, advance diet, cbc
[2016-12-11] MEDS: ACETAMINOPHEN 325 MG TABLET (FP) PO PRN ×4 (08:10→22:12)
[2016-12-11 08:25] LABS: BASOPHIL 0.4 % (0-2.0); EOSINOPHIL 1.5 % (0-4.5); MCH 32.7 pg (25.7-33.7); MCHC 33.1 g/dl (32.0-36.0); MEAN CELL VOLUME 98.8 fl (80-96); MEAN PLT VOLUME 9.7 fl (7.5-11.1); NEUTROPHILS 77.4 % (42.8-82.8); PLATELET COUNT 140 K/MM3 (134-434); RDW 14.7 % (11.6-15.6); WHITE BLOOD COUNT 10.9 K/mm3 (4.0-10.0)
[2016-12-11] MEDS ORDERED: valACYclovir HCL 500 MG TABLET (FP) PO ONE (10:00)
[2016-12-11] MEDS: PRENATAL VITAMINS W/ FOLIC ACID TABLET (FP) PO SCH (10:52)
[2016-12-11] MEDS: ENOXAPARIN NA (PORCINE) 40 MG/0.4 ML DISP.SYRIN SQ SCH (10:52)
[2016-12-11] MEDS: SIMETHICONE 80 MG TAB.CHEW (FP) PO PRN ×2 (12:29→17:30)
[2016-12-11] MEDS: oxyCODONE HCL 5 MG TABLET PO PRN ×3 (12:30→22:13)
[2016-12-11] MEDS ORDERED: BISACODYL 10 MG SUPP.RECT RC PRN (14:04)
--- NOTE | 2016-12-11 15:24 | PN ---
Progress Note (short form) - Note Progress Note: Anesthesia POD#1 S/P under spinal A No N/v,walking around,pain is under control. Doing well. Cris Goodman MD.
[2016-12-11] MEDS ORDERED: DIPHTH,PERTUSS(ACELL),TET 0.5 ML DISP.SYRIN IM ONE (16:45)
[2016-12-11] MEDS: FERROUS SO4 325 MG TABLET (FP) PO SCH (22:13)
[2016-12-12] MEDS: SIMETHICONE 80 MG TAB.CHEW (FP) PO PRN ×4 (02:35→19:48)
[2016-12-12] MEDS: ACETAMINOPHEN 325 MG TABLET (FP) PO PRN ×5 (02:35→22:39)
[2016-12-12] MEDS: oxyCODONE HCL 5 MG TABLET PO PRN ×5 (02:36→23:40)
[2016-12-12] MEDS: FERROUS SO4 325 MG TABLET (FP) PO SCH ×2 (10:10→22:38)
[2016-12-12] MEDS: PRENATAL VITAMINS W/ FOLIC ACID TABLET (FP) PO SCH (10:10)
[2016-12-12] MEDS: ENOXAPARIN NA (PORCINE) 40 MG/0.4 ML DISP.SYRIN SQ SCH (10:10)
--- NOTE | 2016-12-12 12:48 | PN ---
Progress Note (short form) - Note Progress Note: pod 2 doing well, ambulating CBC, BMP 12/11/16 07:51 12/10/16 09:50 abdomen soft , non tender, no cva incision dry, clean no calftenderness plan ambulate , cbc in am
[2016-12-12 18:23] LABS: BASOPHIL 0.3 % (0-2.0); EOSINOPHIL 1.3 % (0-4.5); MCH 32.5 pg (25.7-33.7); MCHC 33.7 g/dl (32.0-36.0); MEAN CELL VOLUME 96.4 fl (80-96); MEAN PLT VOLUME 9.1 fl (7.5-11.1); NEUTROPHILS 75.9 % (42.8-82.8); PLATELET COUNT 215 K/MM3 (134-434); RDW 14.5 % (11.6-15.6)
[2016-12-12 18:51] LABS: ALBUMIN 2.4 g/dl (3.4-5.0); ALK PHOS 155 U/L (45-117); ANION GAP 9 (8-16); BILIRUBIN,TOTAL 0.6 mg/dL (0.2-1.0); CALCIUM 8.3 mg/dL (8.5-10.1); CO2 25 mmol/L (21-32); CREATININE 0.7 mg/dL (0.55-1.02); GLUCOSE,RANDOM 75 mg/dL (74-106); SGOT/AST 31 U/L (15-37); SGPT/ALT 23 U/L (12-78); TOT PROT 5.5 g/dl (6.4-8.2)
[2016-12-12] MEDS: CLINDAMYCIN 900 MG PREMIX IVPB 50 ML IVPB SCH (19:49)
[2016-12-12] MEDS: GENTAMICIN 80 MG PREMIXED IVPB 100 ML IVPB SCH (20:31)
[2016-12-12 21:49] LABS: URINE APPEARANCE SLCLOUDY; URINE BILIRUBIN NEGATIVE (NEGATIVE); URINE BLOOD 3+ (NEGATIVE); URINE COLOR YELLOW; URINE GLUCOSE (UA) NEGATIVE (NEGATIVE); URINE KETONE NEGATIVE (NEGATIVE); URINE LEUK ESTERASE TRACE (NEGATIVE); URINE NITRITE NEGATIVE (NEGATIVE); URINE UROBILINOGEN NEGATIVE mg/dL (0.2-1.0)
[2016-12-12 21:54] LABS: URINE PROTEIN 1+ (NEGATIVE)
[2016-12-12 21:56] LABS: URINE MUCUS RARE; URINE RBC 197 /hpf (0-3); URINE WBC 44 /hpf (3-5)
[2016-12-12] MEDS: SENNOSIDES/DOCUSATE COMBO (SENNA PLUS) TABLET (UD) PO PRN (22:38)
[2016-12-13] MEDS: CLINDAMYCIN 900 MG PREMIX IVPB 50 ML IVPB SCH ×3 (02:04→17:59)
[2016-12-13] MEDS: GENTAMICIN 80 MG PREMIXED IVPB 100 ML IVPB SCH ×3 (03:30→18:31)
[2016-12-13] MEDS: oxyCODONE HCL 5 MG TABLET PO PRN ×4 (04:08→22:10)
[2016-12-13] MEDS: ACETAMINOPHEN 325 MG TABLET (FP) PO PRN ×4 (04:08→22:09)
[2016-12-13] MEDS: DEXTROSE 5%-LACTATED RINGERS 1,000 ML IV SCH ×2 (05:43→20:49)
[2016-12-13] MEDS: PRENATAL VITAMINS W/ FOLIC ACID TABLET (FP) PO SCH (08:59)
[2016-12-13] MEDS: ENOXAPARIN NA (PORCINE) 40 MG/0.4 ML DISP.SYRIN SQ SCH (08:59)
[2016-12-13] MEDS: FERROUS SO4 325 MG TABLET (FP) PO SCH ×2 (08:59→22:09)
[2016-12-13 10:08] LABS: BASOPHIL 0.5 % (0-2.0); EOSINOPHIL 1.9 % (0-4.5); MCH 32.6 pg (25.7-33.7); MCHC 33.5 g/dl (32.0-36.0); MEAN CELL VOLUME 97.3 fl (80-96); MEAN PLT VOLUME 8.8 fl (7.5-11.1); NEUTROPHILS 80.2 % (42.8-82.8); PLATELET COUNT 198 K/MM3 (134-434); RDW 14.2 % (11.6-15.6); WHITE BLOOD COUNT 11.8 K/mm3 (4.0-10.0)
--- NOTE | 2016-12-13 12:46 | PN ---
Progress Note (short form) - Note Progress Note: had temp 102 ,and chills yesterday, had septic workup done, voids ok, no dysuria. had BM, has chills now Last Vital Signs Temp Pulse Resp BP Pulse Ox 98.2 F 91 H 20 128/91 12/13/16 05:36 12/13/16 05:36 12/13/16 05:36 12/13/16 05:36 CBC, BMP 12/13/16 08:50 12/12/16 17:30 abdomen soft, no distension, no cva, BS present, incision dry, clean ,no discharge lochia mild no odor no calf tenderness impression pod 3 sepsis, r/o endometritis plan cont iv antibiotics cbc in am
[2016-12-14] MEDS: CLINDAMYCIN 900 MG PREMIX IVPB 50 ML IVPB SCH ×3 (02:02→17:17)
[2016-12-14] MEDS: oxyCODONE HCL 5 MG TABLET PO PRN ×4 (02:10→23:10)
[2016-12-14] MEDS: ACETAMINOPHEN 325 MG TABLET (FP) PO PRN ×4 (02:10→23:10)
[2016-12-14] MEDS: GENTAMICIN 80 MG PREMIXED IVPB 100 ML IVPB SCH ×3 (02:48→17:52)
[2016-12-14 07:12] LABS: BASOPHIL 0.6 % (0-2.0); EOSINOPHIL 4.4 % (0-4.5); MCHC 34.1 g/dl (32.0-36.0); MEAN CELL VOLUME 96.8 fl (80-96); MEAN PLT VOLUME 8.4 fl (7.5-11.1); NEUTROPHILS 65.4 % (42.8-82.8); PLATELET COUNT 270 K/MM3 (134-434); RDW 14.6 % (11.6-15.6); WHITE BLOOD COUNT 8.2 K/mm3 (4.0-10.0)
--- NOTE | 2016-12-14 07:39 | PN ---
Progress Note (short form) - Note Progress Note: pod 4 , s/p c/s ,sepsis. on iv antibiotics, afebrile today , still has low abdominal pain CBC, BMP 12/14/16 06:45 Last Vital Signs Temp Pulse Resp BP Pulse Ox 98.0 F 84 18 133/79 12/14/16 02:00 12/13/16 22:00 12/13/16 22:00 12/13/16 22:00 abdomen soft, no distension, mild uterine tenderness incision dry, clean urine culture pending, blood cultures negative so far impression afebrile , pulse normal, wbc normal plan cont iv antibiotic 24 more hrs ,then swith to po
[2016-12-14 07:46] LABS: ALBUMIN 2.5 g/dl (3.4-5.0); ANION GAP 8 (8-16); CALCIUM 8.4 mg/dL (8.5-10.1); CO2 27 mmol/L (21-32); CREATININE 0.6 mg/dL (0.55-1.02); GLUCOSE,RANDOM 78 mg/dL (74-106); SGOT/AST 122 U/L (15-37); SGPT/ALT 51 U/L (12-78)
[2016-12-14 07:48] LABS: ALK PHOS 132 U/L (45-117); BILIRUBIN,TOTAL 0.6 mg/dL (0.2-1.0); TOT PROT 5.6 g/dl (6.4-8.2)
[2016-12-14] MEDS: SIMETHICONE 80 MG TAB.CHEW (FP) PO PRN ×3 (08:27→23:10)
[2016-12-14] MEDS: FERROUS SO4 325 MG TABLET (FP) PO SCH ×2 (10:11→22:59)
[2016-12-14] MEDS: PRENATAL VITAMINS W/ FOLIC ACID TABLET (FP) PO SCH (10:11)
[2016-12-14] MEDS: ENOXAPARIN NA (PORCINE) 40 MG/0.4 ML DISP.SYRIN SQ SCH (10:11)
--- NOTE | 2016-12-14 10:17 | DS ---
Physical Exam-SUGAR LABORATORY ASSISTANT Vital Signs: Vital Signs Temperature 97.8 F 12/14/16 10:00 Pulse Rate 93 H 12/14/16 10:00 Respiratory Rate 18 12/14/16 10:00 Blood Pressure 126/53 12/14/16 10:00 O2 Sat by Pulse Oximetry (%) Constitutional: Yes: Well Nourished, Obese Eyes: Yes: WNL HENT: Yes: WNL, Normocephalic Neck: Yes: WNL Cardiovascular: Yes: WNL Respiratory: Yes: WNL Gastrointestinal: Yes: WNL, Normal Bowel Sounds, Soft, Abdomen, Obese, Other ( bm done). No: Distention Renal/: Yes: Other (urine culture report voiding without difficulty). No: CVA Tenderness - Left, CVA Tenderness - Right ....Post : Yes: Uterus firm, Uterus non-tender, Uterus tender, Moderate lochia rubra (no odor) Breast(s): Yes: WNL Musculoskeletal: Yes: WNL Extremities: Yes: WNL. No: Calf Tenderness Edema: LLE: 1+, RLE: 1+ Integumentary: Yes: Tattoos Wound/Incision: Yes: Clean/Dry, Well Approximated, Steri Strips, Open to air, [place] Removed. No: Draining, Reddened, Bleeding, Excoriated Neurological: Yes: WNL, Oriented ...Motor Strength: WNL Psychiatric: Yes: WNL, Alert, Oriented Labs: CBC, BMP 12/14/16 06:45 12/14/16 06:45 Delivery - Delivery Section: Primary, Low Flap Transverse (Indication : 39.4 weeks, Fetus at Risk, Meconium Fluid, HSVgenitalis ,Morbid Obesity) Type of Anesthesia: Spinal Episiotomy/Laceration: None EBL (cc): 1,000 Delivery, Single - Stages of Labor Date 1st Stage Initiatied: 12/10/16 Time 1st Stage Initiated: 07:00 Date of Delivery: 12/10/16 Time of Delivery: 13:14 Time Placenta Delivered: 13:16 Placenta: Yes: Manual Removal, Uterine Exploration - Condition of Infant Job Putter Up And Ticket Preparer/Seaming Machine Operator Present: Yes Name: Zhou Disla Gender: Male Weight: 9 lb 15 oz Position: Left, OT Total Hours ROM (Hrs/Mins): 4h 56m - 1 Minute Total Score: 8 5 Minutes Total Score: 9 - Feeding Plan Initial Plan: Exclusive throughout hospitalization Remarks - Remarks Remarks: 26 yrs 39 .4 weeks in labor, srom, medium thick meconium , h/o hepes genitalis breakout x 4 days ago, rx with valtrex for 4 days gbs pos, rx Iv Ampicillin 2 gm ivpb given . pnc at , [facility] Intraop course uneventful post op day #2 , high fever, temp 102 , Endomyometritis suspected. blood cultures neg rx IV Clindamycin & Gentamicin given for 48 hrs she will follow Po Augmentin at home for 7 days . Anemia counselled discharge on 12/15/2016 Discharge Summary Reason For Visit: LABOR Current Active Problems Delivery by emergency section (Acute) Herpes genitalis in women (Acute) Meconium in amniotic fluid affecting management of mother (Acute) Morbid obesity with BMI of 40.0-44.9, adult (Acute) with 39 completed weeks gestation (Acute) SROM (spontaneous rupture of membranes) (Acute) Condition: Stable - Instructions Diet, Activity, Other Instructions: Post Instructions DIET: Continue good diet high in protein, calcium, and iron rich foods. Drink at least eight (8) glasses of water daily in addition to other fluids. ct Regular diet MEDICATIONS: Continue vitamins and iron as previously directed. Motrin and Tylenol may be taken for minor discomfort. ACTIVITY: Mild to moderate exercise may be started in two (2) weeks. Take frequent rest periods. Resume normal activity after six (6) week check up. WOUND CARE OF OPERATIVE SITE: Continue use of perineal bottle until vaginal discharge stops. Keep area clean. Shower daily. Keep abdominal wound dry. Report any drainage or redness to physician. Tub baths, tampons and douches are not permitted for [address] Breast feeding & or Bottle feeding BREAST CARE: (For those that are not breast feeding): If engorgement occurs: Wear tight fitting bra. Take Tylenol or Motrin for pain. Apply cold packs (ice in bags to each breast ) FAMILY PLANNING: There are many control alternatives to pursue and they should be discussed at your first office visit. You may resume sexual activity after your six (6) week check up. (Remember, breast feeding is not a contraceptive) NEXT PHYSICIAN APPOINTMENT: Be certain to call for a one (1) week appointment, unless otherwise directed. at 2, [facility] or got to Emergency Dept if you have any of the following: Heavy vaginal bleeding Painful urination Leg pain Unusual odor noted to vaginal bleeding High fever Red streaking noted on breast Referrals: Kaia Laird MD [Staff Physician] - Disposition: HOME - Home Medications Comprehensive Discharge Medication List: Ambulatory Orders Ferrous Sulfate [Feosol] 325 mg PO DAILY 09/12/16 Vitamins (Sjr) - 1 tab PO DAILY 09/12/16 Acetaminophen [Tylenol .Regular Strength -] 500 mg PO Q4H PRN #30 tablet Amox-Tr/K Cl [Augmentin - 875Mg Tablet] 1 tab PO BID #14 tablet 12/14/16 Ferrous Sulfate [Feosol] 325 mg PO BID #60 tab 12/14/16 Oxycodone HCl [Roxicodone -] 5 mg PO Q4H PRN #30 tablet MDD 6 tabs 12/14/16 Vitamins (Sjr) - 1 tab PO DAILY #30 tablet 12/14/16
[2016-12-14] MEDS: DEXTROSE 5%-LACTATED RINGERS 1,000 ML IV SCH (17:52)
[2016-12-14] MEDS: SENNOSIDES/DOCUSATE COMBO (SENNA PLUS) TABLET (UD) PO PRN (23:10)
[2016-12-15] MEDS: CLINDAMYCIN 900 MG PREMIX IVPB 50 ML IVPB SCH ×3 (01:43→09:08)
[2016-12-15] MEDS: GENTAMICIN 80 MG PREMIXED IVPB 100 ML IVPB SCH ×2 (02:36→10:26)
[2016-12-15] MEDS: SIMETHICONE 80 MG TAB.CHEW (FP) PO PRN ×2 (02:56→08:57)
[2016-12-15] MEDS: oxyCODONE HCL 5 MG TABLET PO PRN ×2 (02:56→08:55)
[2016-12-15] MEDS: ACETAMINOPHEN 325 MG TABLET (FP) PO PRN ×2 (02:57→08:53)
[2016-12-15] MEDS: ENOXAPARIN NA (PORCINE) 40 MG/0.4 ML DISP.SYRIN SQ SCH (09:04)
[2016-12-15] MEDS: PRENATAL VITAMINS W/ FOLIC ACID TABLET (FP) PO SCH (09:04)
[2016-12-15] MEDS: FERROUS SO4 325 MG TABLET (FP) PO SCH (09:04)
--- NOTE | 2016-12-15 14:11 | PN ---
Post Progress Note - Subjective Subjective: 26 yo Para 1, status post Primary , seen and evaluated. She's lying in bed, no complaints; she's afebrile. She's status post antibiotic for 1 x fever. Doing well. Post Day: 5 Type of Delivery: Primary C/S Vital Signs: Vital Signs Temperature 98.6 F 12/15/16 06:00 Pulse Rate 95 H 12/14/16 22:00 Respiratory Rate 18 12/14/16 22:00 Blood Pressure 137/83 12/14/16 22:00 O2 Sat by Pulse Oximetry (%) Breast Exam: Yes: Soft Uterus: Yes: Fundus Firm Incision: Yes: Other (Sterile strips in place) Abdomen/GI: Yes: Tolerating PO Lochia: Yes: Rubra Lochia, amount: Small Extremities: Yes: Calves non-tender Perineum: Yes: Intact Activity: Other (refuses to ambulate) - Labs Labs: CBC WBC 8.2 K/mm3 (4.0-10.0) D 12/14/16 06:45 RBC 2.71 M/mm3 (3.60-5.2) L 12/14/16 06:45 Hgb 9.0 GM/dL (10.7-15.3) L 12/14/16 06:45 Hct 26.3 % (32.4-45.2) L 12/14/16 06:45 MCV 96.8 fl (80-96) H 12/14/16 06:45 MCH 33.0 pg (25.7-33.7) 12/14/16 06:45 MCHC 34.1 g/dl (32.0-36.0) 12/14/16 06:45 RDW 14.6 % (11.6-15.6) 12/14/16 06:45 Plt Count 270 K/MM3 (134-434) D 12/14/16 06:45 MPV 8.4 fl (7.5-11.1) 12/14/16 06:45 Neutrophils % 65.4 % (42.8-82.8) 12/14/16 06:45 Lymphocytes % 23.2 % (8-40) D 12/14/16 06:45 Monocytes % 6.4 % (3.8-10.2) 12/14/16 06:45 Eosinophils % 4.4 % (0-4.5) D 12/14/16 06:45 Basophils % 0.6 % (0-2.0) 12/14/16 06:45 Retic Count 2.96 % (0.5-1.5) H 12/10/16 09:50 Haptoglobin 107 mg/dL (34-200) 12/10/16 09:50 Assessment/Plan Status post primary Status post antibiotic therapy Stable D/C home F/U in clinic in 1 week
[2016-12-15 16:29] VITALS: BP 139/80; PULSE 80; TEMP 97.9
--- NOTE | 2016-12-15 16:59 | PATH ---
Surgical Pathology Report Patient Name: KALLIE PONCE [facility]. Rec. #: [id number] /Age/Gender: 1990 (Age: 26) / F Account: [id number] Location: [facility] OBS/INVESTIGATOR FRAUD Taken: 12/10/2016 Received: 12/11/2016 Reported: 12/15/2016 Physicians: Kaia Laird M.D. Specimen(s) Received PLACENTA Clinical History 39.3 gestational age, herpes Final Diagnosis PLACENTA, DELIVERY: FOCALLY DISRUPTED THIRD TRIMESTER PLACENTA WITH THREE VESSEL UMBILICAL CORD AND MECONIUM HISTIOCYTOSIS OF PLACENTAL MEMBRANES. Electronically Signed Leonard Mendoza M.D. Gross Description The specimen is received fresh labeled placenta and is a 665 gram, 20 x 16 x 3.2 cm. placenta with attached membranes and umbilical cord. The attached membranes are green and mucoid and insert marginally. The umbilical cord measures 31 cm. in length and averages 1.3 cm. in diameter. The cord inserts eccentrically, 4 cm. to the nearest margin. No true knots or strictures are identified. Cut surface of the umbilical cord reveals 3 vessels. The surface is blue and guidry with areas of slight green discoloration and a branching pattern of blood vessels. The maternal surface is red-brown with focal defects. Sectioning reveals red-brown, spongy parenchyma. No lesions are identified. Letter[employer] Press Set Up Operator sections are submitted in three cassettes as follows: 1- membrane rolls and umbilical cord; 2-3- full thickness sections of placenta. [facility]/12/14/2016 [facility]/12/14/2016
== END 2016-12-15 17:55 | disposition home or self-care (01) | DRG 540 ==
LOC: JLDR 09:05 → J3W 15:36
PROVIDERS: ADMIT Obstetrics & Gynecology; ATTEND Obstetrics & Gynecology
PROC: 10D00Z1 Extraction of Products of Conception, Low, Open Approach (ICD-10-PCS; principal; 2016-12-10)
DX: O77.0 Labor and delivery complicated by meconium in amniotic fluid (principal); O98.32 Other infections with a predominantly sexual mode of transmission complicating childbirth; O99.834 Other infection carrier state complicating childbirth; A60.09 Herpesviral infection of other urogenital tract; O69.81X0 Labor and delivery complicated by cord around neck, without compression, not applicable or unspecified; O13.4 Gestational [pregnancy-induced] hypertension without significant proteinuria, complicating childbirth; O75.89 Other specified complications of labor and delivery; K21.9 Gastro-esophageal reflux disease without esophagitis; O99.214 Obesity complicating childbirth; E66.01 Morbid (severe) obesity due to excess calories; O99.89 Other specified diseases and conditions complicating pregnancy, childbirth and the puerperium; O86.4 Pyrexia of unknown origin following delivery; Z68.41 Body mass index [BMI] 40.0-44.9, adult; Z3A.39 39 weeks gestation of pregnancy; Z37.0 Single live birth
CPT/HCPCS: 36415; 36600; 71020-TC; 80048; 80053; 81003; 81015; 82803; 82977; 83010; 84450; 84460; 84550; 85025; 85044; 85610; 85730; 86593; 86850; 86900; 86901; 87040; 87086; 88307-TC; 90715; 94010

== ENCOUNTER 2018-04-05 20:57 | Emergency (ER) | payer OTHER ==
[2018-04-05 21:08] VITALS: BP 137/62; PULSE 99; TEMP 98.9; BMI 37.6
--- NOTE | 2018-04-05 21:11 | PDOC ---
Rapid Medical Evaluation Chief Complaint: Nausea/Vomiting Time Seen by Provider: 04/05/18 21:06 Medical Evaluation: Allergies Allergy/AdvReac Type Severity Reaction Status Date / Time ibuprofen [From Advil] Allergy Severe Swelling Verified 09/17/16 20:44 Vital Signs Temp Pulse Resp BP Pulse Ox 98.9 F 99 H 18 137/62 100 04/05/18 21:05 04/05/18 21:05 04/05/18 21:05 04/05/18 21:05 04/05/18 21:05 04/05/18 21:09 I have performed a brief in-person evaluation of this patient. The patient presents with a chief complaint of: nausea and vomiting since this AM. no diarrhea. report diffused abd pain. LMP 03/18 Pertinent physical exam findings: A&O x3 I have ordered the following: uhcg. cmp, cbc. UA. Ucx The patient will proceed to the ED for further evaluation Discharge Disposition - Diagnosis Vomiting Qualifiers: Vomiting type: unspecified Vomiting Intractability: non-intractable Nausea presence: with nausea Qualified Code(s): R11.2 - Nausea with vomiting, unspecified - Referrals Referrals: Andres Nava MD [Primary Care Provider] - - Patient Instructions - Post Discharge Activity
[2018-04-05] MEDS ORDERED: SODIUM CHLORIDE 1,000 ML IV STA (21:38)
[2018-04-05] MEDS ORDERED: ONDANSETRON 4 MG/2 ML VIAL IVPB ONE (21:38)
[2018-04-05 21:44] LABS: BASO % 0.5 % (0-2.0); EOS % 1.2 % (0-4.5); LYMPH % 19.8 % (8-40); MCH 32.9 pg (25.7-33.7); MCHC 35.2 g/dl (32.0-36.0); MEAN CELL VOLUME 93.4 fl (80-96); MEAN PLT VOLUME 9.2 fl (7.5-11.1); MONO % 5.5 % (3.8-10.2); PLATELET COUNT 289 K/MM3 (134-434); RBC 3.96 M/mm3 (3.60-5.2); RDW 12.7 % (11.6-15.6); WHITE BLOOD COUNT 11.3 K/mm3 (4.0-10.0)
[2018-04-05] MEDS ORDERED: FAMOTIDINE 20 MG/50 ML IVPB 20 MG/50 ML MG IVPB ONE ×2 (21:53→21:55)
[2018-04-05] MEDS ORDERED: ONDANSETRON 4 MG/2 ML VIAL ONE (21:55)
[2018-04-05 22:17] LABS: ALBUMIN 3.8 g/dl (3.4-5.0); ALK PHOS 77 U/L (45-117); ANION GAP 8 MMOL/L (8-16); BILIRUBIN,TOTAL 0.6 mg/dL (0.2-1); BLOOD UREA NITROGEN 10 mg/dL (7-18); CALCIUM 8.4 mg/dL (8.5-10.1); CHLORIDE 109 mmol/L (98-107); CO2 24 mmol/L (21-32); CREATININE 0.7 mg/dL (0.55-1.3); GLUCOSE,RANDOM 92 mg/dL (74-106); LIPASE 113 U/L (73-393); POTASSIUM 4.2 mmol/L (3.5-5.1); SGOT/AST 51 U/L (15-37); SGPT/ALT 91 U/L (13-61); SODIUM 141 mmol/L (136-145); TOT PROT 7.3 g/dl (6.4-8.2)
--- NOTE | 2018-04-05 22:21 | PDOC ---
History of Present Illness - General Chief Complaint: Nausea/Vomiting Stated Complaint: Nausea/Vomiting Time Seen by Provider: 04/05/18 21:06 - History of Present Illness Initial Comments: 04/05/18 21:55 28 year old female nausea, vomiting and epigastric pain since this morning. reports nausea start after eating cereal this morning. reports feeling dizzy and weak especially with position changes, denies sick contact or unusual food intake. Past History - Past Medical History Allergies/Adverse Reactions: Allergies Allergy/AdvReac Type Severity Reaction Status Date / Time ibuprofen [From Advil] Allergy Severe Swelling Verified 09/17/16 20:44 Home Medications: Ambulatory Orders Ferrous Sulfate [Feosol] 325 mg PO DAILY 09/12/16 Vitamins (Sjr) - 1 tab PO DAILY 09/12/16 Acetaminophen [Tylenol .Regular Strength -] 500 mg PO Q4H PRN #30 tablet Amox-Tr/K Cl [Augmentin - 875Mg Tablet] 1 tab PO BID #14 tablet 12/14/16 Ferrous Sulfate [Feosol] 325 mg PO BID #60 tab 12/14/16 Vitamins (Sjr) - 1 tab PO DAILY #30 tablet 12/14/16 oxyCODONE HCL [Roxicodone -] 5 mg PO Q4H PRN #30 tablet MDD 6 tabs 12/14/16 Asthma: No Cancer: No Cardiac Disorders: No Diabetes: No HTN: No Seizures: No Thyroid Disease: No - Surgical History Abdominal Surgery: Yes Cholecystectomy: Yes - Reproductive History (#): 1 Para: 0 Cervical CA: No Dysfunctional Uterine Bleeding: No Ectopic : No Endometrial CA: No Polycystic Ovaries: No Therapeutic (s) & number: No Tubal Ligation: No Spontaneous : 0 - Suicide/Smoking/Psychosocial Hx Smoking Status: Yes Smoking History: Never smoked Have you smoked in the past 12 months: No Number of Cigarettes Smoked Daily: 0 Information on smoking cessation initiated: No Hx Alcohol Use: No Drug/Substance Use Hx: No Substance Use Type: None Hx Substance Use Treatment: No *Physical Exam - Vital Signs Last Vital Signs Temp Pulse Resp BP Pulse Ox 98.9 F 99 H 18 137/62 100 04/05/18 21:05 04/05/18 21:05 04/05/18 21:05 04/05/18 21:05 04/05/18 21:05 - Physical Exam General Appearance: Yes: Appropriately Dressed Respiratory/Chest: positive: Lungs Clear, Normal Breath Sounds Gastrointestinal/Abdominal: positive: Normal Bowel Sounds, Tender (mild epigastric tenderness), Soft Extremity: positive: Normal Capillary Refill, Normal Inspection, Normal Range of Motion Integumentary: positive: Normal Color, Dry, Warm Neurologic: positive: Fully Oriented, Alert, Normal Mood/Affect Moderate Sedation - Procedure Monitoring Vital Signs: Procedure Monitoring Vital Signs Temperature 98.9 F 04/05/18 21:05 Pulse Rate 99 H 04/05/18 21:05 Respiratory Rate 18 04/05/18 21:05 Blood Pressure 137/62 04/05/18 21:05 O2 Sat by Pulse Oximetry (%) 100 04/05/18 21:05 ED Treatment Course - LABORATORY CBC & Chemistry Diagram: 04/05/18 21:21 04/05/18 21:21 - ADDITIONAL ORDERS Additional order review: 04/05/18 21:21 RBC 3.96 MCV 93.4 MCHC 35.2 RDW 12.7 D MPV 9.2 Neutrophils % 73.0 Lymphocytes % 19.8 Monocytes % 5.5 Eosinophils % 1.2 Basophils % 0.5 Medical Decision Making - Medical Decision Making 04/05/18 22:22 A: a gastroenteritis/ gastritis? P: labs, ivf zofran 04/05/18 22:35 history of cholecystectomy 10 years ago. abdominal pain has improved. will continue to hydrate 04/05/18 23:19 patient is feeling better. UA urine pending. will d/c home. *DC/Admit/Observation/Transfer Diagnosis at time of Disposition: Vomiting Qualifiers: Vomiting type: unspecified Vomiting Intractability: non-intractable Nausea presence: with nausea Qualified Code(s): R11.2 - Nausea with vomiting, unspecified - Discharge Dispostion Disposition: HOME - Referrals Referrals: Andres Nava MD [Primary Care Provider] - 24 hours - Patient Instructions Printed Discharge Instructions: DI for Vomiting -- Adult Additional Instructions: drink plenty of fluids you may also drink gatorade/ pedialyte start a BRAT ( bananas, rice apple , toast) Additional Instructions: * Please call your personal physician to report your Emergency Department visit and to report your progress, if any. * If there is no improvement in symptoms in 2 days call your physician. * Return to the Emergency Department for any worsening symptoms. - Post Discharge Activity Forms/Work/School Notes: Back to Work
[2018-04-05] MEDS ORDERED: ACETAMINOPHEN 325 MG TABLET (FP) PO ONE (23:18)
[2018-04-05 23:50] LABS: URINE APPEARANCE SLCLOUDY; URINE BILIRUBIN NEGATIVE (<2.0 mg/dL); URINE COLOR YELLOW; URINE GLUCOSE (UA) NEGATIVE (NEGATIVE); URINE KETONE NEGATIVE (NEGATIVE); URINE LEUK ESTERASE TRACE (NEGATIVE); URINE NITRITE NEGATIVE (NEGATIVE); URINE PROTEIN NEGATIVE (NEGATIVE); URINE UROBILINOGEN NEGATIVE mg/dL (0.2-1.0)
[2018-04-05 23:51] LABS: HCG,QUALITATIVE URINE Negative
[2018-04-05 23:53] LABS: EPI CELLS MODERATE /HPF (FEW); URINE MUCUS RARE
[2018-04-06] MEDS ORDERED: ACETAMINOPHEN 325 MG TABLET (FP) ONE (00:18)
== END 2018-04-06 00:35 | disposition home or self-care (01) ==
LOC: JER 20:57
PROC: 3E033GC Introduction of Other Therapeutic Substance into Peripheral Vein, Percutaneous Approach (ICD-10-PCS; principal; 2018-04-05)
PROC: 3E0337Z Introduction of Electrolytic and Water Balance Substance into Peripheral Vein, Percutaneous Approach (ICD-10-PCS; 2018-04-05)
DX: R11.2 Nausea with vomiting, unspecified (principal)
CPT/HCPCS: 36415; 80053; 81003; 81015; 83690; 84703; 85025; 87086; 99283-25; J7030

== ENCOUNTER 2018-07-04 14:01 | Emergency (ER) | payer OTHER ==
--- NOTE | 2018-07-04 14:21 | PDOC ---
Rapid Medical Evaluation Time Seen by Provider: 07/04/18 14:20 Medical Evaluation: Allergies Allergy/AdvReac Type Severity Reaction Status Date / Time ibuprofen [From Advil] Allergy Severe Swelling Verified 09/17/16 20:44 07/04/18 14:20 I have performed a brief in-person evaluation of this patient. The patient presents with a chief complaint of abdominal pain x 1 day. Patient , 8 weeks with left lower abdominal pain. Denies vaginal bleeding. LMP 05/09/2018 Pertinent physical exam findings NAD even and unlabored breathing mild tendernes to lower abdomen I have ordered the following urine , urinalysis, urine culture, labs , u/s The patient will proceed to the ED for further evaluation.
[2018-07-04 14:22] VITALS: BP 134/66; PULSE 80; TEMP 98.3; BMI 40.4
[2018-07-04 15:00] LABS: HCG,QUALITATIVE URINE Positive
[2018-07-04 15:07] LABS: BASO % 0.4 % (0-2.0); EOS % 1.2 % (0-4.5); MCH 33.1 pg (25.7-33.7); MCHC 34.3 g/dl (32.0-36.0); MEAN CELL VOLUME 96.6 fl (80-96); MEAN PLT VOLUME 9.3 fl (7.5-11.1); MONO % 5.4 % (3.8-10.2); PLATELET COUNT 268 K/MM3 (134-434); RBC 3.93 M/mm3 (3.60-5.2); RDW 12.9 % (11.6-15.6); WHITE BLOOD COUNT 9.8 K/mm3 (4.0-10.0)
[2018-07-04 15:32] LABS: URINE APPEARANCE CLEAR; URINE BILIRUBIN NEGATIVE (<2.0 mg/dL); URINE COLOR YELLOW; URINE GLUCOSE (UA) NEGATIVE (NEGATIVE); URINE KETONE NEGATIVE (NEGATIVE); URINE LEUK ESTERASE NEGATIVE (NEGATIVE); URINE NITRITE NEGATIVE (NEGATIVE); URINE PROTEIN NEGATIVE (NEGATIVE); URINE UROBILINOGEN NEGATIVE mg/dL (0.2-1.0)
[2018-07-04] MEDS ORDERED: ACETAMINOPHEN 325 MG TABLET (FP) PO ONE (15:44)
--- NOTE | 2018-07-04 15:44 | PDOC ---
History of Present Illness - General History Source: Patient - History of Present Illness Timing/Duration: reports: intermittent Abdominal Pain Onset Location: reports: suprapubic <Fei Carson - Last Filed: 07/04/18 16:22> <Olga Morrison - Last Filed: 07/04/18 16:31> - General Chief Complaint: Pain, Acute Stated Complaint: 8 WK PREG // ABD PAIN / HEADACHE Time Seen by Provider: 07/04/18 14:20 Past History - Past Medical History Asthma: No Cancer: No Cardiac Disorders: No COPD: No Diabetes: No HTN: No Seizures: No Thyroid Disease: No - Surgical History Abdominal Surgery: Yes Cholecystectomy: Yes - Reproductive History (#): 1 Para: 0 Cervical CA: No Dysfunctional Uterine Bleeding: No Ectopic : No Endometrial CA: No Polycystic Ovaries: No Therapeutic (s) & number: No Tubal Ligation: No Spontaneous : 0 - Immunization History Immunization Up to Date: Yes - Suicide/Smoking/Psychosocial Hx Smoking Status: Yes Smoking History: Never smoked Have you smoked in the past 12 months: No Number of Cigarettes Smoked Daily: 0 Information on smoking cessation initiated: No Hx Alcohol Use: No Drug/Substance Use Hx: No Substance Use Type: None Hx Substance Use Treatment: No <Fei Carson - Last Filed: 07/04/18 16:22> <Olga Morrison - Last Filed: 07/04/18 16:31> - Past Medical History Allergies/Adverse Reactions: Allergies Allergy/AdvReac Type Severity Reaction Status Date / Time ibuprofen [From Advil] Allergy Severe Swelling Verified 09/17/16 20:44 Home Medications: Ambulatory Orders Pnv No.95/Ferrous Fum/Folic AC [ Caplet] 1 each PO DAILY 07/04/18 Review of Systems - Review of Systems Constitutional: No: Chills, Fever ABD/GI: Yes: Abdominal cramping. No: Constipated, Diarrhea, Nausea, Vomiting : No: Dysuria, Discharge, Flank Pain, Hematuria <Fei Carson - Last Filed: 07/04/18 16:22> *Physical Exam - Vital Signs Last Vital Signs Temp Pulse Resp BP Pulse Ox 98.3 F 80 20 134/66 100 07/04/18 14:18 07/04/18 14:18 07/04/18 14:18 07/04/18 14:18 07/04/18 14:18 - Physical Exam General Appearance: Yes: Appropriately Dressed. No: Apparent Distress HEENT: positive: Normal Voice Neck: positive: Supple Respiratory/Chest: negative: Respiratory Distress Gastrointestinal/Abdominal: positive: Normal Bowel Sounds, Soft. negative: Tender, Distended, Guarding, Rebound Musculoskeletal: negative: CVA Tenderness Integumentary: positive: Dry, Warm Neurologic: positive: Fully Oriented, Alert, Normal Mood/Affect <Fei Carson - Last Filed: 07/04/18 16:22> - Vital Signs Last Vital Signs Temp Pulse Resp BP Pulse Ox 98.3 F 80 20 134/66 100 07/04/18 14:18 07/04/18 14:18 07/04/18 14:18 07/04/18 14:18 07/04/18 14:18 <Olga Morrison - Last Filed: 07/04/18 16:31> Moderate Sedation - Procedure Monitoring Vital Signs: Procedure Monitoring Vital Signs Temperature 98.3 F 07/04/18 14:18 Pulse Rate 80 07/04/18 14:18 Respiratory Rate 20 07/04/18 14:18 Blood Pressure 134/66 07/04/18 14:18 O2 Sat by Pulse Oximetry (%) 100 07/04/18 14:18 <[place] - Last Filed: 07/04/18 16:22> - Procedure Monitoring Vital Signs: Procedure Monitoring Vital Signs Temperature 98.3 F 07/04/18 14:18 Pulse Rate 80 07/04/18 14:18 Respiratory Rate 20 07/04/18 14:18 Blood Pressure 134/66 07/04/18 14:18 O2 Sat by Pulse Oximetry (%) 100 07/04/18 14:18 <Olga Morrison - Last Filed: 07/04/18 16:31> ED Treatment Course - LABORATORY CBC & Chemistry Diagram: 07/04/18 14:40 07/04/18 14:40 - ADDITIONAL ORDERS Additional order review: Laboratory Results 07/04/18 14:50 Urine HCG, Qual Positive 07/04/18 14:40 RBC 3.93 MCV 96.6 H MCHC 34.3 RDW 12.9 MPV 9.3 Neutrophils % 69.0 Lymphocytes % 24.0 D Monocytes % 5.4 Eosinophils % 1.2 Basophils % 0.4 <Fei Carson - Last Filed: 07/04/18 16:22> - LABORATORY CBC & Chemistry Diagram: 07/04/18 14:40 07/04/18 14:40 - ADDITIONAL ORDERS Additional order review: Laboratory Results 07/04/18 07/04/18 14:50 14:40 Sodium 138 Potassium 4.0 Chloride 106 Carbon Dioxide 23 Anion Gap 8 BUN 12 Creatinine 0.8 Creat Clearance w eGFR > 60 Random Glucose 97 Calcium 8.8 Total Bilirubin 0.4 AST 28 ALT 58 Alkaline Phosphatase 83 Total Protein 7.3 Albumin 3.7 Beta HCG, Quant 41672.5 Urine Color Yellow Urine Appearance Clear Urine pH 5.0 Ur Specific [place] 1.025 Urine Protein Negative Urine Glucose (UA) Negative Urine Ketones Negative Urine Blood Negative Urine Nitrite Negative Urine Bilirubin Negative Urine Urobilinogen Negative Ur Leukocyte Esterase Negative Urine HCG, Qual Positive 07/04/18 14:40 RBC 3.93 MCV 96.6 H MCHC 34.3 RDW 12.9 MPV 9.3 Neutrophils % 69.0 Lymphocytes % 24.0 D Monocytes % 5.4 Eosinophils % 1.2 Basophils % 0.4 - Medications Given in the ED: ED Medications Discontinued Medications Generic Name Dose Route Start Last Admin Trade Name Wandy PRN Reason Stop Dose Admin Acetaminophen 650 mg 07/04/18 15:44 07/04/18 16:11 Tylenol - PO 07/04/18 15:45 650 mg ONCE ONE Administration <Olga Morrison - Last Filed: 07/04/18 16:31> Medical Decision Making - Medical Decision Making 07/04/18 15:42 28 yo F, , ~8 weeks, no US as of yet, here w/ lower abd pain x 2 days, mild and intermittent per pt. No vag bleed, discharge, dysuria, n/v/f/c See exam 1st trimester w/ abd pain Stable and well bryant and no ttp on abd exam US done and shows +IUP @7 weeks, 3 days w/ cardiac activity -Pending UA and discharge 07/04/18 16:23 UA neg. Stable for discharge <Fei Carson - Last Filed: 07/04/18 16:22> *DC/Admit/Observation/Transfer <Fei Carson - Last Filed: 07/04/18 16:22> - Attestations Physician Attestion: I reviewed the case with the mid-level practitioner and agree with the mid- level practitioner's assessment, diagnosis and disposition. <Olga Morrison - Last Filed: 07/04/18 16:31> Diagnosis at time of Disposition: Abdominal pain affecting - Discharge Dispostion Disposition: HOME Condition at time of disposition: Good - Referrals Referrals: Andres Nava MD [Primary Care Provider] - - Patient Instructions Printed Discharge Instructions: Managing Symptoms of Additional Instructions: You ultrasounds shows an intrauterine at 7 weeks, 3 days w/ heart activity Your beta HCG was > 24, 000 Your urine shows no infection Take tylenol for pain as needed and follow-up with your [facility] this week - Post Discharge Activity Forms/Work/School Notes: Back to Work
[2018-07-04 15:54] LABS: ALBUMIN 3.7 g/dl (3.4-5.0); ALK PHOS 83 U/L (45-117); ANION GAP 8 MMOL/L (8-16); BILIRUBIN,TOTAL 0.4 mg/dL (0.2-1); BLOOD UREA NITROGEN 12 mg/dL (7-18); CALCIUM 8.8 mg/dL (8.5-10.1); CHLORIDE 106 mmol/L (98-107); CO2 23 mmol/L (21-32); CREATININE 0.8 mg/dL (0.55-1.3); GLUCOSE,RANDOM 97 mg/dL (74-106); SGOT/AST 28 U/L (15-37); SGPT/ALT 58 U/L (13-61); SODIUM 138 mmol/L (136-145); TOT PROT 7.3 g/dl (6.4-8.2)
[2018-07-04] MEDS ORDERED: ACETAMINOPHEN 325 MG TABLET (FP) ONE (16:03)
== END 2018-07-04 16:36 | disposition home or self-care (01) ==
LOC: JER 14:01
DX: O26.891 Other specified pregnancy related conditions, first trimester (principal); R10.30 Lower abdominal pain, unspecified; Z3A.08 8 weeks gestation of pregnancy
CPT/HCPCS: 36415; 76801-TC; 80053; 81003; 84702; 84703; 85025; 87086; 99283-25

== ENCOUNTER 2018-07-11 01:52 | Emergency (ER) | payer OTHER ==
[2018-07-11 02:10] VITALS: BMI 40.4
[2018-07-11] MEDS ORDERED: ACETAMINOPHEN 1000 MG/100 ML VIAL (NON FORMULARY) IVPB ONE (02:37)
[2018-07-11] MEDS ORDERED: ONDANSETRON 4 MG/2 ML VIAL IVPUSH ONE (02:37)
--- NOTE | 2018-07-11 02:37 | PDOC ---
Attending Attestation - Resident Resident Name: Ynes Avendaño - ED Attending Attestation I have performed the following: I have examined & evaluated the patient, The case was reviewed & discussed with the resident, I agree w/resident's findings & plan, Exceptions are as noted - HPI HPI: 28 yo F currently 8 WGA presenting with chest pain, abdominal discomfort, nausea , vomiting, and headache. Headache is similar to prior headaches, typically she takes tylenol for them. Chest pain is substernal, sharp, moves to upper back. + Diffuse abdominal discomfort with nausea and vomiting, worse than prior . - Physicial Exam PE: GENERAL: Awake, alert, and fully oriented, in no acute distress. Appears uncomfortable. HEAD: No signs of trauma EYES: PERRLA, EOMI, sclera anicteric, conjunctiva clear ENT: Auricles normal inspection, hearing grossly normal, nares patent, oropharynx clear without exudates. Dry mucosa NECK: Normal ROM, supple, no lymphadenopathy, JVD, or masses LUNGS: Breath sounds equal, clear to auscultation bilaterally. No wheezes, and no crackles HEART: Regular rate and rhythm, normal S1 and S2, no murmurs, rubs or gallops ABDOMEN: Soft, nontender, normoactive bowel sounds. No guarding, no rebound. No masses EXTREMITIES: Normal range of motion, no edema. No clubbing or cyanosis. No cords, erythema, or tenderness NEUROLOGICAL: Cranial nerves II through XII grossly intact. Normal speech, normal gait. Motor and sensation intact SKIN: Warm, Dry, normal turgor, no rashes or lesions noted. - Medical Decision Making Symptoms are atypical for PE, ACS. No fever or body aches, making pna and flu unlikely. This may be combination of dehydration with discomfort of early . Will check labs (particularly for electrolyte abnormality, as she c/ o tingling), UA. Will hydrate and reassess. EKG no acute findings.
[2018-07-11] MEDS ORDERED: ACETAMINOPHEN INJECTION 100 ML IVPB ONE (02:42)
[2018-07-11] MEDS ORDERED: ONDANSETRON 4 MG/2 ML VIAL ONE (02:43)
[2018-07-11] MEDS ORDERED: DEXTROSE 5%-LACTATED RINGERS 1,000 ML IV SCH (02:45)
--- NOTE | 2018-07-11 02:50 | PDOC ---
History of Present Illness - General Chief Complaint: Chest Pain Stated Complaint: CHEST PAIN/HEADACHE/8WK Time Seen by Provider: 07/11/18 02:09 - History of Present Illness Initial Comments: 07/11/18 02:38 Patient is a 28 y/o 8 week female with no medical history who presents for chest pain. Patient reports the pain first started on . She describes it as a sharp pain that also moves to her back. The pain is constant for about twenty to thirty minutes and happens about 2-3 times throughout the day. She reports she has also been feeling chills. She has some burning with urination and an increased frequency. She has had one previous . During her previous she had some tingling in her arm and nausea. She reports she has never had this pain in the past. Also reports she has a headache and has a history of migraines for which she treats with tylenol. EKG without any acute changes f/u labs, tylenol and zofran for symptomatic treatment 07/11/18 06:21 UA shows UTI, reglan given to help headache Past History - Past Medical History Allergies/Adverse Reactions: Allergies Allergy/AdvReac Type Severity Reaction Status Date / Time ibuprofen [From Advil] Allergy Severe Swelling Verified 07/11/18 02:08 Home Medications: Ambulatory Orders Pnv No.95/Ferrous Fum/Folic AC [ Caplet] 1 each PO DAILY 07/04/18 Cephalexin [Keflex] 500 mg PO Q12H #10 capsule 07/11/18 Asthma: No Cancer: No Cardiac Disorders: No COPD: No Diabetes: No HTN: No Seizures: No Thyroid Disease: No - Surgical History Abdominal Surgery: Yes Cholecystectomy: Yes - Reproductive History (#): 1 Para: 0 Cervical CA: No Dysfunctional Uterine Bleeding: No Ectopic : No Endometrial CA: No Polycystic Ovaries: No Therapeutic (s) & number: No Tubal Ligation: No Spontaneous : 0 - Immunization History Immunization Up to Date: Yes - Suicide/Smoking/Psychosocial Hx Smoking Status: Yes Smoking History: Never smoked Have you smoked in the past 12 months: No Number of Cigarettes Smoked Daily: 0 Information on smoking cessation initiated: No Hx Alcohol Use: No Drug/Substance Use Hx: No Substance Use Type: None Hx Substance Use Treatment: No Review of Systems - Review of Systems Constitutional: Yes: Chills. No: Diaphoresis, Fever, Weakness HEENTM: No: Eye Pain Respiratory: No: Cough, Shortness of Breath Cardiac (ROS): Yes: Chest Pain ABD/GI: Yes: Constipated, Nausea. No: Diarrhea, Vomiting : Yes: Burning, Frequency. No: Hematuria Musculoskeletal: Yes: Back Pain Neurological: Yes: Headache, Numbness, Tingling *Physical Exam - Vital Signs Last Vital Signs Temp Pulse Resp BP Pulse Ox 98.7 F 92 H 20 131/73 98 07/11/18 02:08 07/11/18 02:08 07/11/18 02:08 07/11/18 02:08 07/11/18 02:08 - Physical Exam Comments: 07/11/18 02:51 GENERAL: A&O x3, moderate distress and obese HEENT: EOMI, dry lips HEART: RRR, no murmurs rubs or gallops LUNG: CTAL B/L ABD: soft, nontender MSK: chest pain and back pain non reproducible EXTREMITIES: no pitting edema SKIN: no rashes or lesions noted Moderate Sedation - Procedure Monitoring Vital Signs: Procedure Monitoring Vital Signs Temperature 98.7 F 07/11/18 02:08 Pulse Rate 92 H 07/11/18 02:08 Respiratory Rate 20 07/11/18 02:08 Blood Pressure 131/73 07/11/18 02:08 O2 Sat by Pulse Oximetry (%) 98 07/11/18 02:08 ED Treatment Course - LABORATORY CBC & Chemistry Diagram: 07/11/18 02:55 07/11/18 02:55 *DC/Admit/Observation/Transfer Diagnosis at time of Disposition: UTI (urinary tract infection) during Qualifiers: Trimester: first trimester Qualified Code(s): O23.41 - Unspecified infection of urinary tract in , first trimester - Discharge Dispostion Disposition: HOME Condition at time of disposition: Good - Prescriptions Prescriptions: Cephalexin [Keflex] 500 mg PO Q12H #10 capsule - Referrals Referrals: Andres Nava MD [Primary Care Provider] - - Patient Instructions Additional Instructions: You came to the hospital for chest pain, nausea, and pain with urinating. We monitored your heart and found it to be functioning properly. We gave you medication to help with the nausea. We also fount that you have an infection in your urine. To treat the infection please take: Keflex 500 mg by mouth twice a day for 5 days Please follow up with your OBGYN appointment tomorrow. Please return to the Emergency Department if you have worsening of symptoms, vomiting, worsening chest pain, vaginal bleeding, or shortness of breath. - Post Discharge Activity
[2018-07-11 03:02] LABS: HEMATOCRIT 35.4 % (32.4-45.2); HEMOGLOBIN 12.5 GM/dL (10.7-15.3); MCH 33.9 pg (25.7-33.7); MCHC 35.2 g/dl (32.0-36.0); MEAN CELL VOLUME 96.2 fl (80-96); MEAN PLT VOLUME 8.5 fl (7.5-11.1); PLATELET COUNT 248 K/MM3 (134-434); RBC 3.68 M/mm3 (3.60-5.2); RDW 12.7 % (11.6-15.6); WHITE BLOOD COUNT 12.3 K/mm3 (4.0-10.0)
[2018-07-11 03:26] LABS: ALBUMIN 3.4 g/dl (3.4-5.0); ALK PHOS 71 U/L (45-117); ANION GAP 6 MMOL/L (8-16); BILIRUBIN,TOTAL 0.4 mg/dL (0.2-1); BLOOD UREA NITROGEN 13 mg/dL (7-18); CALCIUM 8.5 mg/dL (8.5-10.1); CHLORIDE 104 mmol/L (98-107); CO2 25 mmol/L (21-32); CREATININE 0.7 mg/dL (0.55-1.3); GLUCOSE,RANDOM 99 mg/dL (74-106); POTASSIUM 4.1 mmol/L (3.5-5.1); SGOT/AST 26 U/L (15-37); SGPT/ALT 53 U/L (13-61); SODIUM 136 mmol/L (136-145); TOT PROT 6.9 g/dl (6.4-8.2)
[2018-07-11 04:42] VITALS: BP 131/64; PULSE 87; TEMP 98.6
[2018-07-11] MEDS ORDERED: METOCLOPRAMIDE HCL INJECTION 10 MG/2 ML VIAL IVPB ONE (04:43)
[2018-07-11 04:44] LABS: URINE APPEARANCE SLCLOUDY; URINE BILIRUBIN NEGATIVE (<2.0 mg/dL); URINE COLOR LTYELLOW; URINE GLUCOSE (UA) 1+ (NEGATIVE); URINE KETONE NEGATIVE (NEGATIVE); URINE LEUK ESTERASE 2+ (NEGATIVE); URINE NITRITE NEGATIVE (NEGATIVE); URINE PROTEIN NEGATIVE (NEGATIVE); URINE UROBILINOGEN NEGATIVE mg/dL (0.2-1.0)
[2018-07-11] MEDS ORDERED: METOCLOPRAMIDE HCL INJECTION 10 MG/2 ML VIAL ONE (04:45)
[2018-07-11 06:09] LABS: EPI CELLS MODERATE /HPF (FEW); URINE BACTERIA FEW /hpf (NONE SEEN); URINE MUCUS RARE
--- NOTE | 2018-07-13 11:22 | EKG ---
Test Reason : Blood Pressure : / mmHG Vent. Rate : 081 BPM Atrial Rate : 081 BPM P-R Int : 144 ms QRS Dur : 074 ms QT Int : 380 ms P-R-T Axes : 023 042 031 degrees QTc Int : 441 ms NORMAL SINUS RHYTHM NORMAL ECG WHEN COMPARED WITH ECG OF 17-SEP-2016 20:37, NO SIGNIFICANT CHANGE WAS FOUND Confirmed by CAROLEE WINSTON MD ([id number]) on 07/13/2018 11:22:31 AM Referred By: Confirmed By:CAROLEE WINSTON MD
== END 2018-07-11 06:48 | disposition home or self-care (01) ==
LOC: JER 01:52
PROC: 3E0337Z Introduction of Electrolytic and Water Balance Substance into Peripheral Vein, Percutaneous Approach (ICD-10-PCS; principal; 2018-07-11)
PROC: 3E033NZ Introduction of Analgesics, Hypnotics, Sedatives into Peripheral Vein, Percutaneous Approach (ICD-10-PCS; 2018-07-11)
PROC: 3E033GC Introduction of Other Therapeutic Substance into Peripheral Vein, Percutaneous Approach (ICD-10-PCS; 2018-07-11)
PROC: 3E033GC Introduction of Other Therapeutic Substance into Peripheral Vein, Percutaneous Approach (ICD-10-PCS; 2018-07-11)
DX: O26.91 Pregnancy related conditions, unspecified, first trimester (principal); O23.31 Infections of other parts of urinary tract in pregnancy, first trimester; Z3A.08 8 weeks gestation of pregnancy
CPT/HCPCS: 36415; 80053; 81003; 81015; 84484; 85027; 87086; 93005; 93010; 96361; 96374; 96375; 99283-25; J0131

== ENCOUNTER 2018-08-26 21:53 | Emergency (ER) | payer OTHER ==
[2018-08-26 22:06] VITALS: BP 125/71; PULSE 91; TEMP 97.8; BMI 41.8
--- NOTE | 2018-08-26 22:11 | PDOC ---
History of Present Illness - General Chief Complaint: Lightheaded Stated Complaint: 14 WKS /SUGAR PROBLEM Time Seen by Provider: 08/26/18 22:10 - History of Present Illness Initial Comments: 28yo F A0 currently 14 weeks (LMP 05/09/18) with no significant PMH presented with lightheadedness and abdominal pain. Patient reports she felt lightheaded while at work. 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 Patient had eaten a piece of pizza about one hour prior to this test. She was had a glucose tolerance test during this which was noted to be abnormal, so she was told by her clinician that they may repeat the exam. Primarily out of concern for her blood sugar level taken at work, patient decided to present to the ED for evaluation. She states "I just want my baby to be okay." Patient also reports left lower abdominal pain that she describes as 'sharp.' She has never had pain like this before and rates it 8/10. Not having abdominal pain currently. Last bowel movement was yesterday and was a semisolid brown stool without blood. Abdominal surgeries include cholecystectomy around age 16. No dysuria, hematuria, or urgency. Endorses some nausea for the last couple weeks. Patient has had normal po intake today. Denies vaginal bleeding or discharge. Has not felt contractions. Patient has had a confirmed IUP during this . Reports chills. Denies fever, chest pain, or shortness of breath. pastry assistant: Apolonia Nolan Past History - Past Medical History Allergies/Adverse Reactions: Allergies Allergy/AdvReac Type Severity Reaction Status Date / Time ibuprofen [From Advil] Allergy Severe Swelling Verified 08/26/18 22:53 Home Medications: Ambulatory Orders Pnv No.95/Ferrous Fum/Folic AC [ Caplet] 1 each PO DAILY 07/04/18 Acetaminophen 325 mg PO Q6H PRN #60 tablet 08/27/18 Cephalexin Monohydrate [Keflex -] 500 mg PO BID #13 capsule 08/27/18 Asthma: No Cancer: No Cardiac Disorders: No COPD: No Diabetes: No HTN: No Seizures: No Thyroid Disease: No - Surgical History Abdominal Surgery: Yes Cholecystectomy: Yes - Reproductive History (#): 1 Para: 0 Cervical CA: No Dysfunctional Uterine Bleeding: No Ectopic : No Endometrial CA: No Polycystic Ovaries: No Therapeutic (s) & number: No Tubal Ligation: No Spontaneous : 0 - Immunization History Immunization Up to Date: Yes - Suicide/Smoking/Psychosocial Hx Smoking Status: Yes Smoking History: Never smoked Have you smoked in the past 12 months: No Number of Cigarettes Smoked Daily: 0 Hx Alcohol Use: No Drug/Substance Use Hx: No Substance Use Type: None Hx Substance Use Treatment: No Review of Systems - Review of Systems Comments:: Constitutional: no fever, +chills HEENT: no throat pain, no dysphagia Cardiovascular: no chest pain, no palpitations Respiratory: no cough, no shortness of breath Gastrointestinal: +abdominal pain, +nausea Genitourinary: no dysuria, no vaginal bleeding Musculoskeletal: no myalgia, no arthralgia Skin: no rash, no itching Neurologic: +headache, +lightheaded *Physical Exam - Vital Signs Last Vital Signs Temp Pulse Resp BP Pulse Ox 97.8 F 91 H 20 125/71 97 08/26/18 22:03 08/26/18 22:03 08/26/18 22:03 08/26/18 22:03 08/26/18 22:03 - Physical Exam Comments: General: Awake, alert, and fully oriented, in no acute distress Head: No signs of trauma Eyes: EOMI, sclera anicteric ENT: Moist mucus membranes Neck: Normal ROM, supple Lungs: Lungs clear, Normal breath sounds Cardio: Regular rhythm, S1 and S2 present Abdomen: Soft, nontender. No guarding, no rebound, no masses Extremities: Normal range of motion, Distal pulses present SKIN: Warm, Dry, normal turgor Neurologic: Cranial nerves II through XII grossly intact. Normal speech Pelvic: External genitalia without erythema, exudate or discharge. Vaginal vault is with white physiologic discharge. Cervix is of normal color without lesion. The os is closed. There is no bleeding noted. Uterus is noted to be of appropriate size and nontender. No cervical motion tenderness is seen. No masses are palpated. The adnexa are without masses or tenderness. ED Treatment Course - LABORATORY CBC & Chemistry Diagram: 08/26/18 22:45 08/26/18 22:45 Medical Decision Making - Medical Decision Making 28yo F A0 currently 14 weeks (LMP 05/09/18) with no significant PMH presented with lightheadedness and abdominal pain. DDX including but not limited to threatened , ectopic , ovarian cyst, anemia, UTI, hyperglycemia, normal symptoms CBC, CMP, B-hcg, UA, UCx Fluids, 1g Ofirmev 08/26/18 22:31 Bedside Transabdominal US reassuring: IUP with FHR 164 Pending labs 08/27/18 00:19 UA positive for infection with +1 LE, 16 WBCs, and 199 bacteria Keflex ordered CBC WBC 11.1 K/mm3 (4.0-10.0) H 08/26/18 22:45 RBC 3.55 M/mm3 (3.60-5.2) L 08/26/18 22:45 Hgb 11.4 GM/dL (10.7-15.3) 08/26/18 22:45 Hct 34.5 % (32.4-45.2) 08/26/18 22:45 MCV 97.4 fl (80-96) H 08/26/18 22:45 MCH 32.1 pg (25.7-33.7) 08/26/18 22:45 MCHC 33.0 g/dl (32.0-36.0) 08/26/18 22:45 RDW 13.0 % (11.6-15.6) 08/26/18 22:45 Plt Count 249 K/MM3 (134-434) 08/26/18 22:45 MPV 9.2 fl (7.5-11.1) 08/26/18 22:45 Absolute Neuts (auto) 7.9 K/mm3 (1.5-8.0) 08/26/18 22:45 Neutrophils % 71.3 % (42.8-82.8) 08/26/18 22:45 Lymphocytes % 23.0 % (8-40) 08/26/18 22:45 Monocytes % 4.0 % (3.8-10.2) 08/26/18 22:45 Eosinophils % 1.2 % (0-4.5) 08/26/18 22:45 Basophils % 0.5 % (0-2.0) 08/26/18 22:45 Nucleated RBC % 0 % (0-0) 08/26/18 22:45 Slight leukocytosis, WBC=11.1 No anemia Pending chemistry; call to lab regarding this result which is still pending; radio tower technician says he will look into it 08/27/18 01:22 CMP Sodium 135 mmol/L (136-145) L 08/26/18 22:45 Potassium 4.1 mmol/L (3.5-5.1) 08/26/18 22:45 Chloride 104 mmol/L (98-107) 08/26/18 22:45 Carbon Dioxide 25 mmol/L (21-32) 08/26/18 22:45 Anion Gap 6 MMOL/L (8-16) L 08/26/18 22:45 BUN 10 mg/dL (7-18) 08/26/18 22:45 Creatinine 0.8 mg/dL (0.55-1.3) 08/26/18 22:45 Creat Clearance w eGFR 86.04 (>60) 08/26/18 22:45 Random Glucose 123 mg/dL (74-106) H 08/26/18 22:45 Calcium 8.8 mg/dL (8.5-10.1) 08/26/18 22:45 Total Bilirubin 0.5 mg/dL (0.2-1) 08/26/18 22:45 AST 28 U/L (15-37) 08/26/18 22:45 ALT 46 U/L (13-61) 08/26/18 22:45 Alkaline Phosphatase 64 U/L (45-117) 08/26/18 22:45 Total Protein 6.9 g/dl (6.4-8.2) 08/26/18 22:45 Albumin 3.2 g/dl (3.4-5.0) L 08/26/18 22:45 Beta HCG, Quant 52458.1 mIU/ml 08/26/18 22:45 Electrolytes unremarkable Plan to discharge 08/27/18 01:29 *DC/Admit/Observation/Transfer Diagnosis at time of Disposition: Abdominal pain affecting , Threatened UTI (urinary tract infection) Qualifiers: Urinary tract infection type: site unspecified Hematuria presence: without hematuria Qualified Code(s): N39.0 - Urinary tract infection, site not specified - Discharge Dispostion Disposition: HOME Condition at time of disposition: Stable - Prescriptions Prescriptions: Acetaminophen 325 mg PO Q6H PRN #60 tablet PRN Reason: Pain Cephalexin Monohydrate [Keflex -] 500 mg PO BID #13 capsule - Referrals Referrals: Andres Nava MD [Primary Care Provider] - - Patient Instructions Printed Discharge Instructions: DI for Threatened , DI for Urinary Tract Infection (UTI) Additional Instructions: You were seen in the Emergency Department for abdominal pain during . Blood work was within normal limits. Urinalysis showed that you have a urinary tract infection. Prescription sent to your pharmacy. Take as instructed on the label. You can give take [id number] tylenol for pain. You can take over-the- counter diclegis for nausea. Follow the instructions on the medication bottle. Pelvic rest is recommended until your physician says otherwise. Follow-up with your switcher at your follow-up appointment on Wednesday. Return to the Emergency Department if you experience: -heavy bleeding (more than two pads per hour for two hours) -severe pain -lightheadedness -shortness of breath -high fever -any other concerning symptoms - Post Discharge Activity
[2018-08-26] MEDS ORDERED: ACETAMINOPHEN 1000 MG/100 ML VIAL (NON FORMULARY) IVPB ONE (22:29)
[2018-08-26] MEDS ORDERED: SODIUM CHLORIDE 1,000 ML IV STA (22:29)
[2018-08-26] MEDS ORDERED: ACETAMINOPHEN INJECTION 100 ML IVPB ONE (22:37)
[2018-08-26 23:30] LABS: BASO % 0.5 % (0-2.0); EOS % 1.2 % (0-4.5); HEMATOCRIT 34.5 % (32.4-45.2); HEMOGLOBIN 11.4 GM/dL (10.7-15.3); MCH 32.1 pg (25.7-33.7); MEAN CELL VOLUME 97.4 fl (80-96); MEAN PLT VOLUME 9.2 fl (7.5-11.1); NEUT % 71.3 % (42.8-82.8); PLATELET COUNT 249 K/MM3 (134-434); RBC 3.55 M/mm3 (3.60-5.2); WHITE BLOOD COUNT 11.1 K/mm3 (4.0-10.0)
[2018-08-26 23:39] LABS: EPI CELLS 8.5 /HPF (0-5/HPF); URINE APPEARANCE CLOUDY; URINE BACTERIA 199.3 /hpf (NEGATIVE); URINE BILIRUBIN NEGATIVE (NEGATIVE); URINE CASTS 16 /lpf (0-8); URINE COLOR YELLOW; URINE GLUCOSE (UA) NEGATIVE (NEGATIVE); URINE KETONE 1+ (NEGATIVE); URINE LEUK ESTERASE 1+ (NEGATIVE); URINE NITRITE NEGATIVE (NEGATIVE); URINE PROTEIN NEGATIVE (NEGATIVE); URINE RBC 3 /hpf (0-4); URINE UROBILINOGEN 0.2 mg/dL (0.2-1.0); URINE WBC 16 /hpf (0-5)
--- NOTE | 2018-08-27 00:28 | PDOC ---
Documentation entered by Felisa Minor SCRIBE, acting as scribe for Juliet Chavez MD. Juliet Chavez MD: This documentation has been prepared by the Mily song Adrianna, SCRIBE, under my direction and personally reviewed by me in its entirety. I confirm that the documentation accurately reflects all work, treatment, procedures, and medical decision making performed by me. Attending Attestation - Resident Resident Name: Olga Obando - ED Attending Attestation I have performed the following: I have examined & evaluated the patient, The case was reviewed & discussed with the resident, I agree w/resident's findings & plan - HPI HPI: 28 Y F A0, at 14 weeks gestation (LMP was 4 months ago), presenting with lightheadedness and abdominal pain. Patient reports feeling lightheaded following her lunch break (pizza) earlier today, and measured her blood sugar at 138. She endorses sharp, localized LLQ pain at that time. Patient denies history of similar symptoms, vaginal bleeding, or vaginal discharge. Patient notes confirmed IUP with her OBGYN. Denies any abdominal pain while in the ED. Denies fever, chills, chest pain, SOB, palpitation, dizziness, weakness, N, V, D , bladder and bowel problems, leg swelling, No sick contacts or travel. No new changes in medications. No suspicious food intake Allergies: Ibuprofen Past Medical History: None reported Social history: Lives with family. No tobacco, ETOH or drug use. Surgical history: Cholecystectomy, appendectomy Meds: as documented in EMR PMD: Dr. Andres Nava OBGYN: Dr. Apolonia Nolan 08/26/18 23:45 - Physicial Exam PE: Agree with the resident's HPI and PE as documented in the electronic medical record. NAD, well appearing, PERRL, EOMI, MMM, nl conjunctiva, anicteric; neck supple. lungs clear, RRR, abdomen soft obese, left lower abdomen tenderness. no CVAT. DUNBAR x4, no focal neuro deficits. No peripheral edema. normal color for ethnicity , WWP. pelvic exam performed by resident, closed os, physio discharge, no adnexal tenderness as documented. 08/26/18 23:45 08/27/18 00:24 - Medical Decision Making 08/27/18 00:25 DDx female abdominal pain: ovarian cyst, ovarian torsion, TOA, pyelonephritis, STD/PID, Mittelschmerz, anemia, electrolyte/metabolic derangements, DUB, miscarriage, demise, subchorionic hematoma, UTI in in . Fibroid uterus, vaginitis, infection, electrolyte/metabolic derangements, anemia. clinically doubt ovarian cyst/torsion, as pt denies history of such also has upcoming imaging this week with her OB for 2nd trimester ultrasound - appropriate for that. VS wnl, abdomen benign, no VB here; isolated LLQ abdominal pain. Beta hcg appropriate UA with findings c/w UTI, with leuk esterase, some bacteria and WBCs>10. some epis, crystals, given hydration and normal Cr so doubt intrinsic renal disease, does not have s/s c/w renal colic as no flank pain. no systemic sx. bedside pelvic sono transabdominally with live IUP at 164 bpm, +FM. keflex course for uti, treat in , pyelo precautions, hydration supportive care and tylenol analgesia. 08/27/18 00:50 08/27/18 01:04
[2018-08-27 00:39] LABS: URINE CRYSTALS 15-20 /hpf
[2018-08-27] MEDS ORDERED: CEPHALEXIN MONOHYDRATE 500 MG CAPSULE (UD) PO ONE (00:50)
[2018-08-27] MEDS ORDERED: CEPHALEXIN MONOHYDRATE 500 MG CAPSULE (UD) ONE (00:55)
[2018-08-27 01:22] LABS: ALBUMIN 3.2 g/dl (3.4-5.0); ALK PHOS 64 U/L (45-117); ANION GAP 6 MMOL/L (8-16); BILIRUBIN,TOTAL 0.5 mg/dL (0.2-1); BLOOD UREA NITROGEN 10 mg/dL (7-18); CALCIUM 8.8 mg/dL (8.5-10.1); CHLORIDE 104 mmol/L (98-107); CO2 25 mmol/L (21-32); CREATININE 0.8 mg/dL (0.55-1.3); GLUCOSE,RANDOM 123 mg/dL (74-106); POTASSIUM 4.1 mmol/L (3.5-5.1); SGOT/AST 28 U/L (15-37); SGPT/ALT 46 U/L (13-61); SODIUM 135 mmol/L (136-145); TOT PROT 6.9 g/dl (6.4-8.2)
== END 2018-08-27 01:40 | disposition home or self-care (01) ==
LOC: JER 21:53
PROC: 3E033NZ Introduction of Analgesics, Hypnotics, Sedatives into Peripheral Vein, Percutaneous Approach (ICD-10-PCS; principal; 2018-08-26)
PROC: 3E0337Z Introduction of Electrolytic and Water Balance Substance into Peripheral Vein, Percutaneous Approach (ICD-10-PCS; 2018-08-26)
DX: O26.891 Other specified pregnancy related conditions, first trimester (principal); Z3A.14 14 weeks gestation of pregnancy; O20.0 Threatened abortion; N39.0 Urinary tract infection, site not specified
CPT/HCPCS: 36415; 80053; 81003; 84702; 85025; 87086; 96361; 96374; 99282-25; J0131; J7030

== ENCOUNTER 2019-02-19 20:29 | Emergency (ER) | payer OTHER ==
[2019-02-19 20:38] VITALS: BP 123/79; PULSE 78; TEMP 98.1; BMI 38.3
[2019-02-19] MEDS ORDERED: DEXAMETHASONE SOD PHOSPHATE 10 MG/1 ML VIAL IM ONE (21:03)
[2019-02-19] MEDS ORDERED: DEXAMETHASONE SOD PHOSPHATE 10 MG/1 ML VIAL ONE (21:05)
--- NOTE | 2019-02-19 21:11 | PDOC ---
History of Present Illness - General Chief Complaint: Allergic Reaction Stated Complaint: ABD PAIN W/ SWELLING TO EXTREMITIES Time Seen by Provider: 02/19/19 20:47 History Source: Patient Exam Limitations: Clinical Condition - History of Present Illness Initial Comments: 02/19/19 21:07 Patient with recent delivery 3 weeks ago complicated by preeclampsia and help syndrome presented with complaint of diffuse hives all over her body since yesterday which started on bilateral hands and has spread all over the body. Patient reported had elevated bile acid during which she was given medication when admitted to hospital after delivery which resolved. The patient does not know will cause her rash. Denies choking sensation, lip swelling or tongue swelling. Denies any other symptoms Is this a multiple visit Asthma Patient?: No Timing/Duration: 24 hours Past History - Past Medical History Allergies/Adverse Reactions: Allergies Allergy/AdvReac Type Severity Reaction Status Date / Time ibuprofen [From Advil] Allergy Severe Swelling Verified 08/26/18 22:53 Home Medications: Ambulatory Orders Pnv No.95/Ferrous Fum/Folic AC [ Caplet] 1 each PO DAILY 07/04/18 Acetaminophen 325 mg PO Q6H PRN #60 tablet 08/27/18 Cephalexin Monohydrate [Keflex -] 500 mg PO BID #13 capsule 08/27/18 Hydroxyzine HCl 25 mg PO Q8H PRN #20 tablet 02/19/19 Prednisone [Deltasone] 20 mg PO BID 4 Days #8 tablet 02/19/19 Asthma: No Cancer: No Cardiac Disorders: No COPD: No Diabetes: No Disorders: Yes (pre eclampsia) HTN: No Seizures: No Thyroid Disease: No - Surgical History Abdominal Surgery: Yes Cholecystectomy: Yes - Reproductive History (#): 1 Para: 0 Cervical CA: No Dysfunctional Uterine Bleeding: No Ectopic : No Endometrial CA: No Polycystic Ovaries: No Therapeutic (s) & number: No Tubal Ligation: No Spontaneous : 0 - Immunization History Immunization Up to Date: Yes - Psycho Social/Smoking Cessation Hx Smoking Status: Yes Smoking History: Never smoked Have you smoked in the past 12 months: No Number of Cigarettes Smoked Daily: 0 Hx Alcohol Use: No Drug/Substance Use Hx: No Substance Use Type: None Hx Substance Use Treatment: No Review of Systems - Review of Systems Able to Perform ROS?: Yes Is the patient limited Japanese proficient: No Constitutional: No: Chills, Fever, Malaise HEENTM: No: Symptoms Reported, See HPI, Eye Pain, Blurred Vision, Tearing, Recent change in vision, Double Vision, Cataracts, Ear Pain, Ocular Prothesis, Ear Discharge, Nose Pain, Nose Congestion, Tinnitus, Nose Bleeding, Hearing Loss , Throat Pain, Throat Swelling, Mouth Pain, Dental Problems, Difficulty Swallowing, Mouth Swelling, Other Respiratory: No: Symptoms reported, See HPI, Cough, Orthopnea, Shortness of Breath, SOB with Exertion, SOB at Rest, Stridor, Wheezing, Productive cough, Hemoptysis, Other Cardiac (ROS): No: Symptoms Reported, See HPI, Chest Pain, Edema, Irregular Heart Rate, Lightheadedness, Palpitations, Syncope, Chest Tightness, Other ABD/GI: No: Nausea, Vomiting Integumentary: Yes: Symptoms Reported, See HPI, Rash (hives all over) All Other Systems: Reviewed and Negative *Physical Exam - Vital Signs Last Vital Signs Temp Pulse Resp BP Pulse Ox 98.1 F 78 20 123/79 100 02/19/19 20:32 02/19/19 20:32 02/19/19 20:32 02/19/19 20:32 02/19/19 20:32 - Physical Exam Comments: 02/19/19 21:06 GENERAL: Well developed, well nourished. Awake and alert. No acute distress. HEENT: Normocephalic, atraumatic. PERRLA, EOMI. No conjunctival pallor. Sclera are non-icteric. Moist mucous membranes. Oropharynx is clear. NECK: Supple. Full ROM. CARDIOVASCULAR: Regular rate and rhythm. No murmurs, rubs, or gallops. Distal pulses are 2+ and symmetric. PULMONARY: No evidence of respiratory distress. Lungs clear to auscultation bilaterally. No wheezing, rales or rhonchi. ABDOMINAL: Soft. Non-tender. Non-distended. No rebound or guarding. No organomegaly. Normoactive bowel sounds. MUSCULOSKELETAL Normal range of motion at all joints. SKIN: Warm and dry. Normal capillary refill. Well-healing lower abdominal scar with no evidence of infection. Diffuse urticarial rash all over the body. NEUROLOGICAL: Alert, awake, appropriate. Gait is normal without ataxia. PSYCHIATRIC: Cooperative. Good eye contact. Appropriate mood General Appearance: Yes: Nourished, Appropriately Dressed. No: Apparent Distress ED Treatment Course - LABORATORY CBC & Chemistry Diagram: 02/19/19 21:53 02/19/19 21:55 Medical Decision Making - Medical Decision Making 02/19/19 21:08 Patient with recent delivery 3 weeks ago complicated by preeclampsia and help syndrome presented with complaint of diffuse hives all over her body since yesterday which started on bilateral hands and has spread all over the body. Patient reported had elevated bile acid during which she was given medication when admitted to hospital after delivery which resolved. The patient does not know will cause her rash. Denies choking sensation, lip swelling or tongue swelling. Denies any other symptoms Exam significant for diffuse urticarial rash all over the body without excoriations. Symptoms likely allergic reaction. Decadron 10 mg IM and Benadryl 50 mg IM ordered for allergic reaction. Patient is discharged home on p.o. prednisone and hydroxyzine for allergy reaction. Patient have follow-up with MEDIA MARKETING DIRECTOR in 2 days 02/19/19 21:38 Patient report right upper quadrant pain. Will order CBC, LFTs and bile acid level due to history of help syndrome and elevated LFT 3 weeks ago during . Abdominal ultrasound ordered to rule out cholecystitis 02/19/19 22:46 CBC lab unremarkable. Chemistry lab shows mildly elevated LFTs with AST of 42 and ALT of 91 which is an improvement from 3 weeks ago when she had preeclampsia with AST of 64 from records brought with her from [facility]. Patient stable for discharge on prednisone p.o. for allergic reaction and hydroxyzine for hives and itching with OB follow-up in 2 days Discharge - Discharge Information Problems reviewed: Yes Clinical Impression/Diagnosis: Urticarial rash Allergic reaction Qualifiers: Encounter type: initial encounter Qualified Code(s): T78.40XA - Allergy, unspecified, initial encounter Abdominal pain Qualifiers: Abdominal location: right upper quadrant Qualified Code(s): R10.11 - Right upper quadrant pain Condition: Stable Disposition: HOME - Admission No - Additional Discharge Information Prescriptions: Hydroxyzine HCl 25 mg PO Q8H PRN #20 tablet PRN Reason: hives Prednisone [Deltasone] 20 mg PO BID 4 Days #8 tablet - Follow up/Referral Referrals: Brandy,Andres N., MD [Primary Care Provider] - - Patient Discharge Instructions Patient Printed Discharge Instructions: DI for Hives Additional Instructions: Your rash is likely caused by allergic reaction. Take prescribed medication as prescribed. Follow-up with your MEDIA MARKETING DIRECTOR in 2 days as scheduled. Come back to emergency room if shortness of breath, choking sensation, tongue or lip swelling - Post Discharge Activity
[2019-02-19 22:18] LABS: BASO % 0.2 % (0-2.0); EOS % 2.1 % (0-4.5); HEMOGLOBIN 11.1 GM/dL (10.7-15.3); LYMPH % 36.2 % (8-40); MCH 30.6 pg (25.7-33.7); MCHC 32.6 g/dl (32.0-36.0); MEAN CELL VOLUME 93.9 fl (80-96); MEAN PLT VOLUME 9.8 fl (7.5-11.1); MONO % 5.1 % (3.8-10.2); NEUT % 56.4 % (42.8-82.8); PLATELET COUNT 243 K/MM3 (134-434); RBC 3.62 M/mm3 (3.60-5.2); RDW 14.1 % (11.6-15.6); WHITE BLOOD COUNT 6.7 K/mm3 (4.0-10.0)
[2019-02-19 22:41] LABS: ALBUMIN 3.8 g/dl (3.4-5.0); BILIRUBIN,TOTAL 0.6 mg/dL (0.2-1); BLOOD UREA NITROGEN 11.6 mg/dL (7-18); CALCIUM 8.5 mg/dL (8.5-10.1); CREATININE 0.7 mg/dL (0.55-1.3); POTASSIUM 3.9 mmol/L (3.5-5.1); TOT PROT 7.1 g/dl (6.4-8.2)
== END 2019-02-19 22:50 | disposition home or self-care (01) ==
LOC: JER 20:29 → JERFT 20:29 → JER 22:50
PROC: 3E0233Z Introduction of Anti-inflammatory into Muscle, Percutaneous Approach (ICD-10-PCS; principal; 2019-02-19)
PROC: 3E023GC Introduction of Other Therapeutic Substance into Muscle, Percutaneous Approach (ICD-10-PCS; 2019-02-19)
DX: O90.89 Other complications of the puerperium, not elsewhere classified (principal); T78.40XA Allergy, unspecified, initial encounter; L50.9 Urticaria, unspecified; R10.11 Right upper quadrant pain; X58.XXXA Exposure to other specified factors, initial encounter
CPT/HCPCS: 36415; 76705-TC; 80053; 82239; 85025; 96372; 99282-25; J1100

== ENCOUNTER 2019-04-10 05:54 | Emergency (ER) | payer OTHER ==
[2019-04-10 07:17] VITALS: BMI 37.6
--- NOTE | 2019-04-10 08:22 | PDOC ---
History of Present Illness - General Chief Complaint: Injury Stated Complaint: NEEDLE STICK at work Time Seen by Provider: 04/10/19 07:36 History Source: Patient - History of Present Illness Initial Comments: 04/10/19 08:19 Ms. Denise is a 29 y/o woman with no PMH p/w blood exposure at work. 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 She reports that the needle broke through her glove , and that she bled after the event. She denies any prior exposures at work. She reports that the patient has no other known bloodborne pathogens. Past History - Past Medical History Allergies/Adverse Reactions: Allergies Allergy/AdvReac Type Severity Reaction Status Date / Time ibuprofen [From Advil] Allergy Severe Swelling Verified 04/10/19 06:23 Home Medications: Ambulatory Orders Cyanocobalamin Vit B-12 Inj. [Vitamin B12 Injection -] 1,000 mcg IM MONTHLY Emtricitabine/Tenofovir (Tdf) [Truvada 200 mg-300 mg Tablet] 1 each PO DAILY # 30 tablet 04/10/19 Raltegravir [Isentress] 400 mg PO BID #46 tab 04/10/19 Asthma: No Cancer: No Cardiac Disorders: No COPD: No Diabetes: No Disorders: Yes (pre eclampsia) HTN: No Seizures: No Thyroid Disease: No - Surgical History Abdominal Surgery: Yes Cholecystectomy: Yes - Reproductive History (#): 1 Para: 0 Cervical CA: No Dysfunctional Uterine Bleeding: No Ectopic : No Endometrial CA: No Polycystic Ovaries: No Therapeutic (s) & number: No Tubal Ligation: No Spontaneous : 0 - Immunization History Immunization Up to Date: Yes - Psycho Social/Smoking Cessation Hx Smoking Status: Yes Smoking History: Unknown if ever smoked Have you smoked in the past 12 months: No Number of Cigarettes Smoked Daily: 0 Hx Alcohol Use: No Drug/Substance Use Hx: No Substance Use Type: None Hx Substance Use Treatment: No Review of Systems - Review of Systems Able to Perform ROS?: Yes Comments:: 04/10/19 08:21 ROS: GENERAL/CONSTITUTIONAL: No fever or chills. No weakness. HEAD, EYES, EARS, NOSE AND THROAT: No change in vision. No ear pain or discharge. No sore throat. CARDIOVASCULAR: No chest pain or shortness of breath RESPIRATORY: No cough, wheezing, or hemoptysis. GASTROINTESTINAL: No nausea, vomiting, diarrhea or constipation. GENITOURINARY: No dysuria, frequency, or change in urination. MUSCULOSKELETAL: No joint or muscle swelling or pain. No neck or back pain. SKIN: No rash NEUROLOGIC: No headache, vertigo, loss of consciousness, or change in strength/ sensation. ENDOCRINE: No increased thirst. No abnormal weight change HEMATOLOGIC/LYMPHATIC: No anemia, easy bleeding, or history of blood clots. ALLERGIC/IMMUNOLOGIC: No hives or skin allergy. *Physical Exam - Vital Signs Last Vital Signs Temp Pulse Resp BP Pulse Ox 97.6 F 74 16 123/52 L 98 04/10/19 07:45 04/10/19 07:45 04/10/19 07:45 04/10/19 07:45 04/10/19 07:45 - Physical Exam 04/10/19 08:21 PE: GENERAL: Awake, alert, and fully oriented, in no acute distress HEAD: No signs of trauma, normocephalic, atraumatic EYES: PERRLA, EOMI, sclera anicteric, conjunctiva clear ENT: Auricles normal inspection, hearing grossly normal, nares patent, oropharynx clear without exudates. Moist mucosa NECK: Normal ROM, supple, no lymphadenopathy, JVD, or masses LUNGS: No distress, speaks full sentences, clear to auscultation bilaterally HEART: Regular rate and rhythm, normal S1 and S2, no murmurs, rubs or gallops, peripheral pulses normal and equal bilaterally. ABDOMEN: Soft, nontender, normoactive bowel sounds. No guarding, no rebound. No masses EXTREMITIES : Normal inspection, Normal range of motion, no edema. No clubbing or cyanosis NEUROLOGICAL: Cranial nerves II through XII grossly intact. Normal speech, normal gait, no focal sensorimotor deficits SKIN: Warm, Dry, normal turgor, no rashes or lesions noted ED Treatment Course - LABORATORY CBC & Chemistry Diagram: 04/10/19 08:00 04/10/19 08:00 Medical Decision Making - Medical Decision Making 04/10/19 08:21 29F w/ no PMH p/w needle sick at work in patient w/ known HIV. Plan: CBC CMP HIV HepC LDH Phos Triglycerides Truvada x5 days Raltegravir x5 days Dispo: Discharge w/30 day follow up with employee health for repeat testing Discharge - Discharge Information Problems reviewed: Yes Clinical Impression/Diagnosis: Needle stick injury of finger Condition: Stable Disposition: HOME - Admission No - Additional Discharge Information Prescriptions: Emtricitabine/Tenofovir (Tdf) [Truvada 200 mg-300 mg Tablet] 1 each PO DAILY # 30 tablet Raltegravir [Isentress] 400 mg PO BID #46 tab - Follow up/Referral - Patient Discharge Instructions Additional Instructions: You were seen in the ED after a needle stick at work. Please be sure to take the prophylactic medications each day for the next 30 days. Make sure to follow up with Employee Health at your institution in 30 days for repeat testing. - Post Discharge Activity Work/Back to School Note: Back to Work
[2019-04-10 08:53] LABS: BASO % 0.7 % (0-2.0); EOS % 2.2 % (0-4.5); HEMATOCRIT 34.9 % (32.4-45.2); HEMOGLOBIN 11.8 GM/dL (10.7-15.3); MCH 31.3 pg (25.7-33.7); MCHC 33.7 g/dl (32.0-36.0); MEAN CELL VOLUME 92.7 fl (80-96); MEAN PLT VOLUME 9.4 fl (7.5-11.1); NEUT % 61.1 % (42.8-82.8); PLATELET COUNT 270 K/MM3 (134-434); RBC 3.77 M/mm3 (3.60-5.2); RDW 14.2 % (11.6-15.6); WHITE BLOOD COUNT 8.2 K/mm3 (4.0-10.0)
--- NOTE | 2019-04-10 08:57 | PDOC ---
Attending Attestation - Resident Resident Name: ShaneDenny - ED Attending Attestation I have performed the following: I have examined & evaluated the patient, The case was reviewed & discussed with the resident, I agree w/resident's findings & plan - HPI HPI: 04/10/19 08:54 Healthy 29-year-old female with history of anemia presents status post needlestick exposure. 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 No other exposures or injuries, denies any traumatic issues, reports blood from her finger which was stopped and irrigated. Hepatitis vaccinated, was recently and HIV negative. - Physicial Exam PE: 04/10/19 08:55 Vital signs normal Agree with exam as noted, no active bleeding from finger, neurovascular intact. - Medical Decision Making 04/10/19 08:56 29-year-old female presents with needlestick exposure to known HIV-positive source patient with a large-bore needle, isolated to finger. Exposure order set activated Patient requests and would recommend initiating prophylaxis Will attempt to obtain additional records from source patient, patient is already hepatitis vaccinated Will follow-up with employee health at [facility]
[2019-04-10 09:25] LABS: ALBUMIN 3.8 g/dl (3.4-5.0); BILIRUBIN,TOTAL 0.7 mg/dL (0.2-1); BLOOD UREA NITROGEN 12.3 mg/dL (7-18); CALCIUM 8.9 mg/dL (8.5-10.1); CREATININE 0.8 mg/dL (0.55-1.3); PHOSPHOROUS 4.2 mg/dL (2.5-4.9); POTASSIUM 4.2 mmol/L (3.5-5.1); TOT PROT 7.3 g/dl (6.4-8.2); URIC ACID 5.5 mg/dL (2.6-7.2)
[2019-04-10] MEDS ORDERED: RALTEGRAVIR POTASSIUM 400 MG TAB PO ONE (09:31)
[2019-04-10] MEDS ORDERED: EMTRICITABINE 200MG/TENOFOVIR 300MG PO ONE (09:31)
[2019-04-10] MEDS ORDERED: HIV POST EXPOSURE PROPHYLAXIS KIT PO ONE (09:46)
[2019-04-10 10:01] VITALS: BP 118/67; PULSE 82; TEMP 98.1
== END 2019-04-10 10:00 | disposition home or self-care (01) ==
LOC: JER 05:54
CPT/HCPCS: 36415; 80053; 82465; 82977; 83615; 84100; 84478; 84550; 85025; 86317; 86704; 86706; 86803; 87340; 87389; 99283-25

== ENCOUNTER 2019-04-11 00:08 | Emergency (ER) | payer OTHER ==
[2019-04-11 00:25] VITALS: BP 117/81; PULSE 75; TEMP 97.7; BMI 37.6
[2019-04-11] MEDS ORDERED: SODIUM CHLORIDE 1,000 ML IV STA (00:32)
--- NOTE | 2019-04-11 00:39 | PDOC ---
History of Present Illness - General Chief Complaint: Pain Stated Complaint: Diarrhea Time Seen by Provider: 04/11/19 00:31 History Source: Patient Exam Limitations: No Limitations - History of Present Illness Initial Comments: 29 year old female with no PMH, started on antiretroviral treatment yesterday for needle stick exposure (HIV+ pt at dialysis) presented to ED for vaginal pain. She reported her general pain started around 6 PM, she described it as very intense burning or nerve like pain. She denied dysuria, abdominal, nausea, vomiting. She reported that she is on the last day of her period, currently spotting. She reported that she only had one outbreak of herpes, three years ago. She reported she had two loose bowel movements today, no blood in stool. ROS General: denied fever, chills, generalized weakness. HEENT: denied sore throat, rhinorrhea, ear pain. Cardiovascular: denied chest pain, palpitations, syncope, diaphoresis. Respiratory: denied shortness of breath, cough, sputum production, hemoptysis. Gastrointestinal: denied abdominal pain, nausea, vomiting, diarrhea, constipation, blood in stool. Genitourinary: admitted to vaginal pain, vaginal spotting. denied dysuria, increased urinary frequency, hematuria, urinary incontinence, flank pain, vaginal discharge. Back: denied back pain. Musculoskeletal: denied joint pain, muscle pain, joint swelling. Neurological: denied headache, dizziness, numbness, tingling, weakness. Integumentary: denied rash, laceration, abrasion. Hematologic/Lymphatic: denied bruising or bleeding. PE Constitutional: Well-nourished, Well-developed, appearing stated age. HEENT: head is normocephalic, atraumatic. EOMI. PERRLA. Neck: supple. Full ROM. Cardiovascular: regular heart rhythm. no murmurs. no pericardial friction rub. Respiratory: clear to auscultation bilaterally. no crackles, rhonchi or wheezing. no stridor. Gastrointestinal: soft, nontender. normal bowel sounds. no rebound, guarding, masses. Extremities: peripheral pulses intact. no lower extremity edema. Neurological: CN 2-12 grossly intact. moves all four extremities. Psych: awake, alert, oriented x3. follows commands. answers questions appropriately. Genital: supervised with Deepthi Cook, Medical Student. normal external genitalia, no erythema, no lesions. no blood in cervical canal, no abnormal discharge. no CMT. no adnexal tenderness bilaterally. Past History - Past Medical History Allergies/Adverse Reactions: Allergies Allergy/AdvReac Type Severity Reaction Status Date / Time ibuprofen [From Advil] Allergy Severe Swelling Verified 04/11/19 00:25 Home Medications: Ambulatory Orders Cyanocobalamin Vit B-12 Inj. [Vitamin B12 Injection -] 1,000 mcg IM MONTHLY Emtricitabine/Tenofovir (Tdf) [Truvada 200 mg-300 mg Tablet] 1 each PO DAILY # 30 tablet 04/10/19 Raltegravir [Isentress] 400 mg PO BID #46 tab 04/10/19 Lidocaine 2% Uro-Jet [Xylocaine 2% Uro-Jet] 2 ml .ROUTE TID PRN #2 cartridge Valacyclovir HCl [Valtrex -] 1,000 mg PO DAILY 4 Days #4 tablet 04/11/19 - Reproductive History (#): 2 Para: 2 Spontaneous : 0 Comment:: x2 - Psycho Social/Smoking Cessation Hx Number of Cigarettes Smoked Daily: 0 *Physical Exam - Vital Signs Last Vital Signs Temp Pulse Resp BP Pulse Ox 97.7 F 75 19 117/81 98 04/11/19 00:10 04/11/19 00:10 04/11/19 00:10 04/11/19 00:10 04/11/19 00:10 ED Treatment Course - LABORATORY CBC & Chemistry Diagram: 04/11/19 00:40 04/11/19 00:40 Medical Decision Making - Medical Decision Making 29 year old female with above PMH presented to ED for vaginal pain since 1800, recently started on antiretrovirals. Initial Vital Signs Temp Pulse Resp BP Pulse Ox 97.7 F 75 19 117/81 98 04/11/19 00:10 04/11/19 00:10 04/11/19 00:10 04/11/19 00:10 04/11/19 00:10 Afebrile. No tachycardia. No tachypnea. No hypotension. No hypoxia on room air. Imaging ordered: none Medications ordered: tylenol IV once 04/11/19 01:20 Laboratory Last Values WBC 10.3 K/mm3 (4.0-10.0) H 04/11/19 00:40 RBC 3.55 M/mm3 (3.60-5.2) L 04/11/19 00:40 Hgb 11.0 GM/dL (10.7-15.3) 04/11/19 00:40 Hct 32.8 % (32.4-45.2) 04/11/19 00:40 MCV 92.4 fl (80-96) 04/11/19 00:40 MCH 31.1 pg (25.7-33.7) 04/11/19 00:40 MCHC 33.6 g/dl (32.0-36.0) 04/11/19 00:40 RDW 14.2 % (11.6-15.6) 04/11/19 00:40 Plt Count 264 K/MM3 (134-434) 04/11/19 00:40 MPV 9.1 fl (7.5-11.1) 04/11/19 00:40 Absolute Neuts (auto) 7.1 K/mm3 (1.5-8.0) 04/11/19 00:40 Neutrophils % 69.0 % (42.8-82.8) 04/11/19 00:40 Lymphocytes % 21.6 % (8-40) D 04/11/19 00:40 Monocytes % 6.0 % (3.8-10.2) 04/11/19 00:40 Eosinophils % 2.3 % (0-4.5) 04/11/19 00:40 Basophils % 1.1 % (0-2.0) 04/11/19 00:40 Nucleated RBC % 0 % (0-0) 04/11/19 00:40 Sodium 141 mmol/L (136-145) 04/11/19 00:40 Potassium 4.2 mmol/L (3.5-5.1) 04/11/19 00:40 Chloride 110 mmol/L (98-107) H 04/11/19 00:40 Carbon Dioxide 27 mmol/L (21-32) 04/11/19 00:40 Anion Gap 5 MMOL/L (8-16) L 04/11/19 00:40 BUN 12.0 mg/dL (7-18) 04/11/19 00:40 Creatinine 0.8 mg/dL (0.55-1.3) 04/11/19 00:40 Est GFR (CKD-EPI)AfAm 116.28 04/11/19 00:40 Est GFR (CKD-EPI)NonAf 100.33 04/11/19 00:40 Random Glucose 104 mg/dL (74-106) 04/11/19 00:40 Calcium 8.8 mg/dL (8.5-10.1) 04/11/19 00:40 Magnesium 2.1 mg/dL (1.8-2.4) 04/11/19 00:40 Total Bilirubin 0.5 mg/dL (0.2-1) 04/11/19 00:40 AST 72 U/L (15-37) H 04/11/19 00:40 ALT 137 U/L (13-61) H 04/11/19 00:40 Alkaline Phosphatase 90 U/L (45-117) 04/11/19 00:40 Total Protein 7.2 g/dl (6.4-8.2) 04/11/19 00:40 Albumin 3.8 g/dl (3.4-5.0) 04/11/19 00:40 Lipase 78 U/L (73-393) 04/11/19 00:40 Serum , Qual Negative 04/11/19 00:40 Alcohol, Quantitative < 3 mg/dL (0.0-5.0) 04/11/19 00:40 04/11/19 01:45 Urine Test Results Urine Color Yellow 04/11/19 01:21 Urine Appearance Cloudy 04/11/19 01:21 Urine pH 5.0 (5.0-8.0) 04/11/19 01:21 Ur Specific [place] 1.035 (1.010-1.035) 04/11/19 01:21 Urine Protein Negative (NEGATIVE) 04/11/19 01:21 Urine Glucose (UA) Negative (NEGATIVE) 04/11/19 01:21 Urine Ketones Negative (NEGATIVE) 04/11/19 01:21 Urine Blood 3+ (NEGATIVE) H 04/11/19 01:21 Urine Nitrite Negative (NEGATIVE) 04/11/19 01:21 Urine Bilirubin Negative (NEGATIVE) 04/11/19 01:21 Ur Leukocyte Esterase Negative (NEGATIVE) 04/11/19 01:21 Negative for UTI. Blood likely contaminate from menstrual period. 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 Raltegravir has side effect of Herpes Genitalis, may be the cause. Pt given topical lidocaine uro-jet. Pt reported she prefers Valtrex to Acyclovir. Pt advised to F/U with OBGYN promptly. Pt discharged. 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 Follow up with your OBGYN within 3 days regarding your Emergency Room visit. Your care is not complete until you follow up. Take the Valtrex as prescribed on label. Do not stop early even if you are feeling better. Continue taking your HIV prophylaxis medications as indicated on their labels. Return to the Emergency Department for increasing pain, chest pain, shortness of breath, continuous vomiting, fever, lightheadedness, shortness of breath, passing out or any other new, worsening or concerning symptoms. - Post Discharge Activity Work/Back to School Note: Back to Work
[2019-04-11] MEDS ORDERED: ACETAMINOPHEN 1000 MG/100 ML VIAL (NON FORMULARY) IVPB ONE (00:44)
[2019-04-11] MEDS ORDERED: ACETAMINOPHEN INJECTION 100 ML IVPB ONE (00:44)
[2019-04-11 00:51] LABS: BASO % 1.1 % (0-2.0); EOS % 2.3 % (0-4.5); HEMATOCRIT 32.8 % (32.4-45.2); LYMPH % 21.6 % (8-40); MCH 31.1 pg (25.7-33.7); MCHC 33.6 g/dl (32.0-36.0); MEAN CELL VOLUME 92.4 fl (80-96); MEAN PLT VOLUME 9.1 fl (7.5-11.1); PLATELET COUNT 264 K/MM3 (134-434); RBC 3.55 M/mm3 (3.60-5.2); RDW 14.2 % (11.6-15.6); WHITE BLOOD COUNT 10.3 K/mm3 (4.0-10.0)
--- NOTE | 2019-04-11 00:58 | PDOC ---
Attending Attestation - Resident Resident Name: Evita Sandra - ED Attending Attestation I have performed the following: I have examined & evaluated the patient, The case was reviewed & discussed with the resident, I agree w/resident's findings & plan, Exceptions are as noted - HPI HPI: 04/11/19 00:56 29 yo female who started antiviral medications yesterday following a needle stick from a HIV patient now has c/o vaginal burning and dysuria - Physicial Exam PE: 04/11/19 02:13 tall 29 yo female p/w severe genital burning head ncat neck supple lungs cta b/l [facility] [id number] abd protuberant done by Dr Sandra( no vesicles apparent at this time) neuro axox3,ambulatory - Medical Decision Making 04/11/19 00:58 pt started on truvada and raltegravir yesterday she does have a past medical h/o herpes simplex once 3 yeas ago 04/11/19 01:01 04/11/19 01:25 04/11/19 02:15 pt will be given script for herpes simplex
[2019-04-11 01:06] LABS: LIPASE 78 U/L (73-393); MAGNESIUM 2.1 mg/dL (1.8-2.4)
[2019-04-11 01:19] LABS: ALBUMIN 3.8 g/dl (3.4-5.0); BILIRUBIN,TOTAL 0.5 mg/dL (0.2-1); CALCIUM 8.8 mg/dL (8.5-10.1); CREATININE 0.8 mg/dL (0.55-1.3); POTASSIUM 4.2 mmol/L (3.5-5.1); TOT PROT 7.2 g/dl (6.4-8.2)
[2019-04-11] MEDS ORDERED: valACYclovir HCL 1000 MG TABLET PO ONE (01:22)
[2019-04-11] MEDS ORDERED: valACYclovir HCL 500 MG TABLET (FP) ONE (01:30)
[2019-04-11 01:39] LABS: EPI CELLS 9.1 /HPF (0-5/HPF); HYALINE CASTS 24 /lpf (0-8); URINE APPEARANCE CLOUDY; URINE BILIRUBIN NEGATIVE (NEGATIVE); URINE COLOR YELLOW; URINE GLUCOSE (UA) NEGATIVE (NEGATIVE); URINE KETONE NEGATIVE (NEGATIVE); URINE LEUK ESTERASE NEGATIVE (NEGATIVE); URINE NITRITE NEGATIVE (NEGATIVE); URINE PROTEIN NEGATIVE (NEGATIVE); URINE RBC 6 /hpf (0-4); URINE UROBILINOGEN 0.2 mg/dL (0.2-1.0); URINE WBC 4 /hpf (0-5)
[2019-04-11] MEDS ORDERED: LIDOCAINE HCL 2% JELLY 10 ML CARTRIDGE UR ONE (01:50)
[2019-04-11] MEDS ORDERED: LIDOCAINE HCL 2% JELLY 10 ML CARTRIDGE ONE (01:51)
[2019-04-11 05:46] LABS: URINE BACTERIA 63.8 /hpf (NEGATIVE)
== END 2019-04-11 02:05 | disposition home or self-care (01) ==
LOC: JER 00:08
PROC: 3E033NZ Introduction of Analgesics, Hypnotics, Sedatives into Peripheral Vein, Percutaneous Approach (ICD-10-PCS; principal; 2019-04-11)
PROC: 3E0337Z Introduction of Electrolytic and Water Balance Substance into Peripheral Vein, Percutaneous Approach (ICD-10-PCS; 2019-04-11)
DX: N89.8 Other specified noninflammatory disorders of vagina (principal)
CPT/HCPCS: 36415; 80053; 80307; 81003; 83690; 83735; 84703; 85025; 87086; 99282-25; J0131; J7030

== ENCOUNTER 2019-06-26 21:15 | Emergency (ER) | payer OTHER ==
[2019-06-26 21:41] VITALS: BP 108/72; PULSE 97; TEMP 98.3; BMI 37.6
--- NOTE | 2019-06-26 21:42 | PDOC ---
Rapid Medical Evaluation Time Seen by Provider: 06/26/19 21:39 Medical Evaluation: Allergies Allergy/AdvReac Type Severity Reaction Status Date / Time ibuprofen [From Advil] Allergy Severe Swelling Verified 06/26/19 21:37 06/26/19 21:40 This patient had brief medical evaluation in triage cc: " I have hives" HPI: Patient reports hives x 1 weeks, reports had hives after delivering her child 01/24/19 and had elevated liver function levels Now states she is concerned she is having the same issue. States hives mostly at nights. Denies abdominal pain at present. PE: appears well unlabored breathing no hives in triage on body Orders: labs This patient will proceed to main emergency department for further evaluation Discharge Disposition - Diagnosis Hives - Referrals - Patient Instructions - Post Discharge Activity
[2019-06-26 22:15] LABS: BASO % 0.6 % (0-2.0); HEMATOCRIT 36.5 % (32.4-45.2); HEMOGLOBIN 12.1 GM/dL (10.7-15.3); LYMPH % 37.5 % (8-40); MCH 31.5 pg (25.7-33.7); MCHC 33.3 g/dl (32.0-36.0); MEAN CELL VOLUME 94.6 fl (80-96); MEAN PLT VOLUME 9.4 fl (7.5-11.1); MONO % 6.3 % (3.8-10.2); NEUT % 53.6 % (42.8-82.8); PLATELET COUNT 264 K/MM3 (134-434); RBC 3.86 M/mm3 (3.60-5.2); RDW 13.2 % (11.6-15.6); WHITE BLOOD COUNT 8.9 K/mm3 (4.0-10.0)
[2019-06-26 22:41] LABS: BILIRUBIN,TOTAL 0.6 mg/dL (0.2-1); BLOOD UREA NITROGEN 13.2 mg/dL (7-18); CALCIUM 8.9 mg/dL (8.5-10.1); CREATININE 1.3 mg/dL (0.55-1.3); POTASSIUM 4.2 mmol/L (3.5-5.1); TOT PROT 7.5 g/dl (6.4-8.2)
--- NOTE | 2019-06-26 23:34 | PDOC ---
History of Present Illness - General Chief Complaint: Hives Stated Complaint: ITCHY Time Seen by Provider: 06/26/19 21:39 History Source: Patient - History of Present Illness Initial Comments: 06/26/19 23:28 29-year-old female complaining of hives on and off for the last 1 week. Patient reports similar episode when she was and in January 2019. Denies respiratory symptoms, oral swelling, throat swelling. Patient reports that the hives are worse at night. Denies using new products, new food items. Unknown allergen Past History - Past Medical History Allergies/Adverse Reactions: Allergies Allergy/AdvReac Type Severity Reaction Status Date / Time ibuprofen [From Advil] Allergy Severe Swelling Verified 06/26/19 21:37 Home Medications: Ambulatory Orders Cyanocobalamin Vit B-12 Inj. [Vitamin B12 Injection -] 1,000 mcg IM MONTHLY Emtricitabine/Tenofovir (Tdf) [Truvada 200 mg-300 mg Tablet] 1 each PO DAILY # 30 tablet 04/10/19 Raltegravir [Isentress] 400 mg PO BID #46 tab 04/10/19 Lidocaine 2% Uro-Jet [Xylocaine 2% Uro-Jet] 2 ml .ROUTE TID PRN #2 cartridge Valacyclovir HCl [Valtrex -] 1,000 mg PO DAILY 4 Days #4 tablet 04/11/19 Diphenhydramine HCl [Benadryl -] 25 mg PO Q6H PRN #28 capsule 06/26/19 Famotidine [Pepcid] 40 mg PO DAILY PRN #20 tablet 06/26/19 predniSONE [Deltasone -] 40 mg PO DAILY #10 tablet 06/26/19 Asthma: No Cancer: No Cardiac Disorders: No COPD: No Diabetes: No Disorders: Yes (pre eclampsia) HTN: No Seizures: No Thyroid Disease: No - Surgical History Abdominal Surgery: Yes Cholecystectomy: Yes - Reproductive History (#): 2 Para: 2 Cervical CA: No Dysfunctional Uterine Bleeding: No Ectopic : No Endometrial CA: No Polycystic Ovaries: No Therapeutic (s) & number: No Tubal Ligation: No Spontaneous : 0 - Immunization History Immunization Up to Date: Yes - Psycho Social/Smoking Cessation Hx Smoking Status: Yes Smoking History: Never smoked Have you smoked in the past 12 months: No Number of Cigarettes Smoked Daily: 0 Hx Alcohol Use: No Drug/Substance Use Hx: No Substance Use Type: None Hx Substance Use Treatment: No *Physical Exam - Vital Signs Last Vital Signs Temp Pulse Resp BP Pulse Ox 98.3 F 97 H 20 108/72 100 06/26/19 21:38 06/26/19 21:38 06/26/19 21:38 06/26/19 21:38 06/26/19 21:38 - Physical Exam General Appearance: Yes: Appropriately Dressed HEENT: positive: Normal ENT Inspection Neck: positive: Trachea midline, Other (Uvula midline) Respiratory/Chest: positive: Lungs Clear, Normal Breath Sounds Cardiovascular: positive: Regular Rhythm, Regular Rate Extremity: positive: Normal Capillary Refill, Normal Inspection, Normal Range of Motion Integumentary: positive: Normal Color, Dry, Warm. negative: Hives Neurologic: positive: Fully Oriented, Alert ED Treatment Course - LABORATORY CBC & Chemistry Diagram: 06/26/19 21:45 06/26/19 21:45 - ADDITIONAL ORDERS Additional order review: Laboratory Results 06/26/19 21:45 Sodium 140 Potassium 4.2 Chloride 106 Carbon Dioxide 27 Anion Gap 7 L BUN 13.2 Creatinine 1.3 Est GFR (CKD-EPI)AfAm 64.65 Est GFR (CKD-EPI)NonAf 55.78 Random Glucose 106 Calcium 8.9 Total Bilirubin 0.6 AST 99 H ALT 180 H Alkaline Phosphatase 78 Total Protein 7.5 Albumin 4.0 06/26/19 21:45 RBC 3.86 MCV 94.6 MCHC 33.3 RDW 13.2 MPV 9.4 Neutrophils % 53.6 D Lymphocytes % 37.5 D Monocytes % 6.3 Eosinophils % 2.0 Basophils % 0.6 ED Progress Note - Progress Note Progress Note: 06/27/19 03:46 A: hives: allergic reaction P: benadryl prednisone Discharge - Discharge Information Problems reviewed: Yes Clinical Impression/Diagnosis: Hives Allergic reaction Qualifiers: Encounter type: initial encounter Qualified Code(s): T78.40XA - Allergy, unspecified, initial encounter Condition: Improved Disposition: HOME - Additional Discharge Information Prescriptions: Diphenhydramine HCl [Benadryl -] 25 mg PO Q6H PRN #28 capsule PRN Reason: For Itching Famotidine [Pepcid] 40 mg PO DAILY PRN #20 tablet PRN Reason: Allergies predniSONE [Deltasone -] 40 mg PO DAILY #10 tablet - Follow up/Referral Referrals: Andres Nava MD [Primary Care Provider] - - Patient Discharge Instructions Patient Printed Discharge Instructions: DI for General Allergic Reactions Additional Instructions: Take Pepcid as prescribed. Benadryl every 6 hours as needed for itching. Take prednisone as prescribed. It is very important to follow-up with your primary doctor as soon as possible Return to the emergency room for any worsening symptoms - Post Discharge Activity Work/Back to School Note: Back to Work
== END 2019-06-26 23:37 | disposition home or self-care (01) ==
LOC: JERFT 21:15
DX: L50.0 Allergic urticaria (principal); T78.40XA Allergy, unspecified, initial encounter; X58.XXXA Exposure to other specified factors, initial encounter; Z87.59 Personal history of other complications of pregnancy, childbirth and the puerperium; Z90.49 Acquired absence of other specified parts of digestive tract
CPT/HCPCS: 36415; 80053; 85025; 99283-25

== ENCOUNTER 2021-02-11 19:50 | Emergency (ER) | payer OTHER ==
[2021-02-11 20:02] VITALS: BP 124/84; PULSE 67; TEMP 98.6; BMI 36.9
[2021-02-11 22:16] LABS: EPI CELLS 14 /uL (0-25.1); HYALINE CASTS 1 /uL (0-3.1); URINE APPEARANCE CLEAR; URINE BACTERIA 248 /uL (0-1359); URINE BILIRUBIN NEGATIVE (NEGATIVE); URINE COLOR YELLOW; URINE GLUCOSE (UA) NEGATIVE (NEGATIVE); URINE KETONE NEGATIVE (NEGATIVE); URINE LEUK ESTERASE 2+ (NEGATIVE); URINE NITRITE NEGATIVE (NEGATIVE); URINE PROTEIN NEGATIVE (NEGATIVE); URINE RBC 29 /uL (0-23.9); URINE UROBILINOGEN 0.2 mg/dL (0.2-1.0); URINE WBC 90 /uL (0-25.8)
[2021-02-11 22:17] LABS: HCG,QUALITATIVE URINE Negative
== END 2021-02-11 22:49 | disposition home or self-care (01) ==
LOC: JERFT 19:50
PROC: 3E023GC Introduction of Other Therapeutic Substance into Muscle, Percutaneous Approach (ICD-10-PCS; principal; 2021-02-11)
DX: N30.00 Acute cystitis without hematuria (principal); Z11.3 Encounter for screening for infections with a predominantly sexual mode of transmission
CPT/HCPCS: 36415; 81003; 84703; 87070; 87077; 87086; 87205; 87491; 87591; 96372; 99284-25

== ENCOUNTER 2022-01-18 11:41 | Emergency (ER) | payer OTHER ==
[2022-01-18 11:50] VITALS: BP 118/61; PULSE 69; RESP 18; TEMP 98; BMI 31.4
[2022-01-18 12:23] LABS: PH,URINE 5.5 (5.0-8.0); URINE APPEARANCE CLEAR; URINE BILIRUBIN NEGATIVE (NEGATIVE); URINE COLOR YELLOW; URINE GLUCOSE (UA) NEGATIVE (NEGATIVE); URINE KETONE NEGATIVE (NEGATIVE); URINE LEUK ESTERASE NEGATIVE (NEGATIVE); URINE NITRITE NEGATIVE (NEGATIVE); URINE PROTEIN NEGATIVE (NEGATIVE); URINE UROBILINOGEN 0.2 mg/dL (0.2-1.0)
[2022-01-18 12:26] LABS: HCG,QUALITATIVE URINE Negative
[2022-01-18 13:49] LABS: THROAT:GRP A STREP NOT DETECTED (NOTDETECTED)
== END 2022-01-18 15:18 | disposition home or self-care (01) ==
LOC: JER 11:41
DX: J02.9 Acute pharyngitis, unspecified (principal)
CPT/HCPCS: 0241U-QW; 81003; 84703; 87086; 87651; 99283-25